=== PATIENT | female | born 1980 | race Caucasian/White ===

== ENCOUNTER 2017-09-17 15:21 | Emergency (ER) | payer MEDICAID, SELFPAY ==
[2017-09-17 15:43] VITALS: BP 128/77; PULSE 110; RESP 18; TEMP 37.3; O2SAT 98; BMI 27.9
--- NOTE | 2017-09-17 16:23 | HMH.EDUTC ---
[facility] – [place] Disposition Clinical Impression: Viral upper respiratory illness Disposition: Home, Self-Care Condition on Discharge: Good Instructions: DI for Viral Upper Respiratory Infection -- Adult Additional Instructions: * Monitor Temp. Tylenol and/or Ibuprofen as needed. ER if fever is no less than 101 despite alternating Tylenol and Ibuprofen * Encourage fluids, water, Gatorade, powerade, pedialyte if infant/toddler/or child * Warm salt water gargles for throat irritation *Warm fluids *Sore throat lozenges *Sleep elevated *humidifier or vaporizer Lots of rest Increase fluids, water, Gatorade, powerade *Flonase 2 sprays each nostril daily but may take 2-3 days to notice improvement with it *Bromfed may cause drowsiness. Know how it effect you or your child. Before driving, caring for small children or sending your child to school *Your throat swab was sent to lab for culture. Those results area typically sent to your primary care physician. Be sure to follow up in 2-3 days if no improvement so they can review those results and treat if necessary If you dont have primary care I recommend you get one, but in the mean time you will have to return to a walk in clinic Follow up IMMEDIATELY for new or worsening of symptoms OR no noticeable improvement over the next 48-72 hours. 911 immediately for any life threatening symptoms such as chest pain or difficulty breathing Prescriptions: Brompheniramine/Pseudoephed/Dm [Bromfed DM Cough Syrup 5mL] 10 ml PO Q4HP PRN #300 ml PRN Reason: Cough Fluticasone Propionate [Flonase 50mcg nasal spray 16gm] 2 spr NS DAILY #1 bottle Referrals: Christiano Acosta MD [Primary Care Provider] - Time of Disposition: 16:37 Medical Decision Making - Medical Records Medical records reviewed: Yes: I reviewed the patient's medical records. Vital Signs: 09/17/17 15:43 Temperature 99.2 F Temperature Source Temporal Artery Scan Pulse Rate [Right] 110 H Respiratory Rate 18 Blood Pressure [Right Arm] 128/77 Blood Pressure Mean [Right Arm] 94 Blood Pressure Source [Right Arm] Automatic Cuff Blood Pressure Position [Right Arm] Sitting 02 Sat by Pulse Oximetry 98 Oxygen Delivery Method Room Air - Romie Inquiry Pt receiving controlled substance: No Romie was queried for this patient: No [facility] [place] HPI - General Stated complaint: body aches ear pain sore throat head ache cough Mode of Arrival: Ambulatory Source of Information: Patient Limitations: No Limitations Description of Symptoms (Recalled from Triage Doc. by RN): COUGH, CONGESTION, BODY ACHES BEGAN LAST NIGHT HEENT Symptoms (Recalled from RN notes): Yes Resp Symptoms (Recalled from RN notes): No Skin Symptoms (Recalled from RN notes): No MS Symptoms (Recalled from RN notes): No Functional Status (Recalled from RN notes): N - History of Present Illness Provider Complaint: Patient states that she has not been feeling well since last night State that she has continued to get worse States that she is having body aches, chills, fever, sore throat, ear ache and over all not feeling well State that she was worried that she may have the flu - Related Data Previous Rx's Medication Instructions Recorded Brompheniramine/Pseudoephed/Dm 10 ml PO Q4HP PRN #300 ml 09/17/17 [Bromfed DM Cough Syrup 5mL] Fluticasone Propionate [Flonase 2 spr NS DAILY #1 bottle 09/17/17 50mcg nasal spray 16gm] Allergies Allergy/AdvReac Type Severity Reaction Status Date / Time No Known Allergies Allergy Verified 09/17/17 15:48 - Worker's Comp Is this a Worker's Comp case?: No [facility] History I have reviewed the patient's past medical history: Yes - *Social History Smoking Status: Current every day smoker Tobacco Type: cigarettes Alcohol Intake: never - Psychiatric History Expresses thoughts of harming self/others: None Suicide Plan Description: No Plan ROS Obtained: Yes All systems reviewed & no additional complaints - Constitutional Constitu
--- NOTE | 2017-09-17 16:34 | ED_ITS ---
[facility] [place] Disposition Clinical Impression: Viral upper respiratory illness Disposition: Home, Self-Care Condition on Discharge: Good Instructions: DI for Viral Upper Respiratory Infection -- Adult Additional Instructions: * Monitor Temp. Tylenol and/or Ibuprofen as needed. ER if fever is no less than 101 despite alternating Tylenol and Ibuprofen * Encourage fluids, water, Gatorade, powerade, pedialyte if infant/toddler/or child * Warm salt water gargles for throat irritation *Warm fluids *Sore throat lozenges *Sleep elevated *humidifier or vaporizer Lots of rest Increase fluids, water, Gatorade, powerade *Flonase 2 sprays each nostril daily but may take 2-3 days to notice improvement with it *Bromfed may cause drowsiness. Know how it effect you or your child. Before driving, caring for small children or sending your child to school *Your throat swab was sent to lab for culture. Those results area typically sent to your primary care physician. Be sure to follow up in 2-3 days if no improvement so they can review those results and treat if necessary If you don? t have primary care I recommend you get one, but in the mean time you will have to return to a walk in clinic Follow up IMMEDIATELY for new or worsening of symptoms OR no noticeable improvement over the next 48-72 hours. 911 immediately for any life threatening symptoms such as chest pain or difficulty breathing Prescriptions: Brompheniramine/Pseudoephed/Dm [Bromfed DM Cough Syrup 5mL] 10 ml PO Q4HP PRN # 300 ml PRN Reason: Cough Fluticasone Propionate [Flonase 50mcg nasal spray 16gm] 2 spr NS DAILY #1 bottle Referrals: Christiano Acosta MD [Primary Care Provider] - Time of Disposition: 16:37 Medical Decision Making - Medical Records Medical records reviewed: Yes: I reviewed the patient's medical records. Vital Signs: 09/17/17 15:43 Temperature 99.2 F Temperature Source Temporal Artery Scan Pulse Rate [Right] 110 H Respiratory Rate 18 Blood Pressure [Right Arm] 128/77 Blood Pressure Mean [Right Arm] 94 Blood Pressure Source [Right Arm] Automatic Cuff Blood Pressure Position [Right Arm] Sitting 02 Sat by Pulse Oximetry 98 Oxygen Delivery Method Room Air - Romie Inquiry Pt receiving controlled substance: No Romie was queried for this patient: No [facility] [place] HPI - General Stated complaint: body aches ear pain sore throat head ache cough Mode of Arrival: Ambulatory Source of Information: Patient Limitations: No Limitations Description of Symptoms (Recalled from Triage Doc. by RN): COUGH, CONGESTION, BODY ACHES BEGAN LAST NIGHT HEENT Symptoms (Recalled from RN notes): Yes Resp Symptoms (Recalled from RN notes): No Skin Symptoms (Recalled from RN notes): No MS Symptoms (Recalled from RN notes): No Functional Status (Recalled from RN notes): N - History of Present Illness Provider Complaint: Patient states that she has not been feeling well since last night State that she has continued to get worse States that she is having body aches, chills, fever, sore throat, ear ache and over all not feeling well State that she was worried that she may have the flu - Related Data Previous Rx's Medication Instructions Recorded Brompheniramine/Pseudoephed/Dm 10 ml PO Q4HP PRN #300 ml 09/17/17 [Bromfed DM Cough Syrup 5mL] Fluticasone Propionate [Flonase 2 spr NS DAILY #1 bottle 09/17/17 50mcg nasal spray 16gm] Allergies Darshan
[2017-09-17 16:36] LABS: UTC Influenza A Antigen Negative (Negative); UTC Influenza B Antigen Negative (Negative)
[2017-09-17 16:47] VITALS: BP 128/77; PULSE 100; RESP 18; TEMP 37.2
== END 2017-09-17 16:48 | disposition home or self-care (01) ==
PROVIDERS: Emergency Provider Nurse Practitioner; Family Provider Internal Medicine Adolescent Medicine; PCP Internal Medicine Adolescent Medicine
DX: J06.9 Acute upper respiratory infection, unspecified (principal)
CPT/HCPCS: 87804; 99202

== ENCOUNTER → 2018-05-18 15:11 | Outpatient (CLI) | payer MEDICAID, SELFPAY ==
[2018-05-18 15:56] LABS: Basophils # 0.1 K/mm3 (0-0.2); Basophils % 0.8 % (0.1-2.0); Eosinophils # 0.3 K/mm3 (0.0-0.4); Eosinophils % 2.9 % (0.1-12.0); Hematocrit 40.3 % (37.0-47.0); Hemoglobin 13.6 g/dL (12.2-16.2); Lymphocytes # 3.6 K/mm3 (0.7-4.5); Mean Corpuscular HGB Conc 33.7 g/dL (31.8-35.4); Mean Corpuscular Hemoglobin 31.6 pg (27.0-31.2); Mean Corpuscular Volume 93.6 fl (81-99); Mean Platelet Volume 7.4 fl (7.4-10.4); Monocytes # 0.4 K/mm3 (0.1-1.0); Monocytes % 3.8 % (1.7-9.3); Neutrophils # 5.2 K/mm3 (1.8-7.8); Neutrophils % 54.7 % (37.0-80.0); Platelet Count 329 K/mm3 (142-424); Red Cell Distribution Width 12.8 % (11.5-17.5); White Blood Count 9.5 K/mm3 (4.8-10.8)
[2018-05-18 16:13] LABS: Alanine Aminotransferase 32 U/L (12-78); Albumin Level 3.9 gm/dL (3.4-5.0); Albumin/Globulin Ratio 1.3 (1.1-1.8); Alkaline Phosphatase 98 U/L (46-116); Anion Gap 13.1 mEq/L (5-15); Aspartate Amino Transferase 18 U/L (15-37); Bilirubin,Total 0.3 mg/dL (0.2-1.0); Blood Urea Nitrogen 15 mg/dL (7-18); Calcium 9.1 mg/dL (8.5-10.1); Carbon Dioxide 26 mmol/L (21.0-32.0); Chloride 106 mmol/L (98-107); Creatinine,Serum 0.61 mg/dL (0.55-1.02); Estimated Glomerular Filt Rate 110 ml/min (>60); GFR (African American) 134 ML/MIN (>60); Globulin 2.9 gm/dl (1.3-3.2); Glucose 89 mg/dL (74-106); Potassium 4.1 mmoL/L (3.5-5.1); Sodium 141 mmol/L (136-145); Thyroid Stimulating Hormone 0.91 uIU/ml (0.358-3.740); Total Protein,Serum 6.8 gm/dL (6.4-8.2)
[2018-05-20 10:04] LABS: Vitamin B12 581 pg/mL (232-1245); Vitamin D 25 Hydroxy 21.2 ng/mL (30.0-100.0)
== END ==
PROVIDERS: PCP Nurse Practitioner Family; Visit Provider Nurse Practitioner Family
DX: R53.83 Other fatigue (principal)
CPT/HCPCS: 36415; 80053; 82607; 82652; 84443; 85025

== ENCOUNTER → 2018-05-24 10:36 | Outpatient (CLI) | payer MEDICAID, SELFPAY ==
--- NOTE | 2018-05-24 10:40 | US_ITS ---
US breast LT complete INDICATION: Palpable abnormality in the left axillary region ORDERING PHYSICIAN: Tete Stewart PATIENT AGE: 37 years COMPARISON: None TECHNIQUE: Standard ultrasound performed FINDINGS: In the subcutaneous area of the left axilla there is a triangular-shaped 9 x 3 mm area of decreased echogenicity with a somewhat irregular appearance. This could represent an area of inflammation/infection or developing abscess. Fine-needle aspiration could be performed with sonographic guidance if clinically warranted. A mammogram was not performed as this was in the axilla and not in an area that would be covered by the mammogram. IMPRESSION: Ill-defined hypoechoic subcutaneous area in the left axilla which could be due to an area of inflammation/infection or developing abscess. Recommend follow-up to confirm resolution
== END ==
PROVIDERS: Family Provider Internal Medicine Adolescent Medicine; PCP Nurse Practitioner Family; Visit Provider Nurse Practitioner Family
DX: N63.20 Unspecified lump in the left breast, unspecified quadrant (principal)
CPT/HCPCS: 76641

== ENCOUNTER → 2019-05-08 15:21 | Outpatient (CLI) | payer MEDICAID, SELFPAY ==
--- NOTE | 2019-05-08 15:22 | MM_ITS ---
PROCEDURE: MM DIG SCREENING MAMM BI W/CAD CLINICAL INDICATION: screening There is no personal or family history of breast cancer COMPARISON: None, this is baseline TECHNIQUE: Standard CC and MLO images were obtained. R2 CAD reviewed. FINDINGS: Scattered fibroglandular densities are seen throughout both breasts. There are couple of benign-appearing microcalcifications in each breast. There is no suspicious lesion and no suspicious microcalcifications. IMPRESSION: Fibrofatty parenchyma with no suspicious lesions seen BI-RAD Category: 2 Benign Finding(s) FOLLOW-UP: 1YR 1 Year Follow-up (A letter has been sent to the patient regarding results of the study.) Dictated by: Dr. Sebastian Mathur MD 05/13/2019 08:[address] Sebastian Mathur MD in [place] 05/13/2019 08:23
--- NOTE | 2019-05-08 15:22 | US_ITS ---
PROCEDURE: US TRANSVAGINAL CLINICAL INDICATION: pelvic pain COMPARISON: PTV US PELVIS-TRANSVAGINAL ONLY from 09/18/2016 FINDINGS: The uterus is empty and there is no cul-de-sac fluid. UTERUS: Measures 6.2 x 3.1 x 3.7 centimeters. LEFT OVARY: Measures 2.1 x 1.0 x 1.5 centimeters. RIGHT OVARY: Measures 1.5 x 1.0 x 1.0 centimeters. Evidence of blood flow to both ovaries. IMPRESSION: Normal study. Dictated by: Rj Canseco 05/08/2019 16:00 Electronically signed by Rj Canseco in [place] 05/08/2019 16:00
== END ==
PROVIDERS: PCP Internal Medicine Adolescent Medicine; Visit Provider Obstetrics & Gynecology
DX: Z12.31 Encounter for screening mammogram for malignant neoplasm of breast (principal); R10.2 Pelvic and perineal pain
CPT/HCPCS: 76830; 77067

== ENCOUNTER 2019-12-14 18:22 | Emergency (ER) | payer OTHER, SELFPAY ==
[2019-12-14 18:28] VITALS: BP 141/80; PULSE 80; RESP 16; TEMP 36.7; O2SAT 98; BMI 28.3
--- NOTE | 2019-12-14 18:34 | HMH.EDUTC ---
[facility] [place] Disposition Clinical Impression: Pain Disposition: Still a Patient Condition on Discharge: Good Referrals: Christiano Acosta MD [Primary Care Provider] - Medical Decision Making - Romie Inquiry Pt receiving controlled substance: No Romie was queried for this patient: No Vital Signs: 12/14/19 18:28 Temperature 98.0 F Temperature Source Oral Pulse Rate [Right Brachial] 80 Respiratory Rate 16 Blood Pressure [Right Arm] 141/80 H Blood Pressure Mean [Right Arm] 100 Blood Pressure Source [Right Arm] Automatic Cuff Blood Pressure Position [Right Arm] Sitting 02 Sat by Pulse Oximetry 98 Oxygen Delivery Method Room Air Medical Decision Narrative: Patient reports having headache for the last couple of days, having blurred vision on and off, Feeling off in her head, feeling like something is sitting on her chest, feeling anxious, having pain in her right upper arm from her elbow to armpit area and into right side of chest/breast area Patient being transferred to ED due to complaints Patient report given and patient placed in room 7 [facility] [place] HPI - General Stated complaint: Pain R Arm ,SOB,WARD Time Seen by Provider: 12/14/19 18:34 Mode of Arrival: Ambulatory Source of Information: Patient Limitations: No Limitations Description of Symptoms (Recalled from Triage Doc. by RN): PT c/o right arm pain that came on suddenly. Denies any heavy lifting/pushing/pulling HEENT Symptoms (Recalled from RN notes): No Resp Symptoms (Recalled from RN notes): No Skin Symptoms (Recalled from RN notes): No MS Symptoms (Recalled from RN notes): Yes (pain in the right arm) Functional Status (Recalled from RN notes): na - History of Present Illness Provider Complaint: Patient state that she has had a headache for a couple of days and has been having blurred vision on and off. States that she has also felt like she had something sitting on her chest at times and felt like her heart was fluttering. States that earlier she started having throbbing like pain in her right arm from her elbow up to her arm pit and into the right side of her chest area around her breast. States that then she started having some blurred vision and her wanted her to come and get checked out States that at this time she feels off and doesnt feel right in her head and she is scared - Related Data Allergies Allergy/AdvReac Type Severity Reaction Status Date / Time No Known Allergies Allergy Verified 12/14/19 18:31 - Worker's Comp Is this a Worker's Comp case?: No Is this an [facility] Worker's Comp?: No H History - Hepatitis A Screen Drug use history?: No High risk sexual behaviors?: No History of sexually transmitted infection?: No Currently employed?: No Childcare worker?: No Do you have indoor plumbing?: Yes Do you have electricity?: Yes Attestation statement:: This patient has been screened for Hepatitis A risk factors. I have reviewed the patient's past medical history: Yes Medical History: Denies:: Cancer, Diabetes Mellitus Type 1, Diabetes Mellitus Type 2, Hypertension, Internal Pacemaker, MRSA, Seizures Other Medical History: Denies: Blood Transfusion Reaction Other Surgeries: Yes: Hysterectomy-Partial, Tubal Ligation, Other. No: Pacemaker Amputation: No Fractures: No Comment: dental surgery. 1999-D&E. 2006-PPBTL. 2008-D&C, [facility] Bx. 2016-PVS, Rt. SO, Adhesiolysis - Social History Smoking Status: Current every day smoker Tobacco Type: cigarettes # Packs/Day (cigarettes): 1 Alcohol Intake: never Occupational Status: employed Housing: house Household Members: spouse Family Hx:: Diabetes, Heart Attack, Cancer Comment: 2000-Preg #1-Spon Ab, D&E. 2000-Preg#2-,M,6-8,del @35 weeks, no comp, bottle fed. 2001-Preg#3-Spo Ab, D&E. 2003-preg#4-,M,6-7, del @34 weeks, no comp, bottle fed. 2007-preg#5-, F, 6-8, no comp, bottle fed ROS Obtained: Yes All systems reviewed & no additional complaints, Yes Systems reviewed as appropri
--- NOTE | 2019-12-14 18:39 | CT_ITS ---
PROCEDURE: CT HEAD/BRAIN WO CON CLINICAL INDICATION: blurred vision Visual disturbance COMPARISON: No exams were available for comparison TECHNIQUE: Axial images obtained. All CT scans at the facility use one or more dose reduction, viz: automated exposure control, ma/kV adjustment per patient size (including targeted exams where dose is matched to indication, i.e. head), or iterative reconstruction technique. FINDINGS: No midline shift, mass effect, intracranial hemorrhage, hydrocephalus, or extra-axial fluid collection is evident. The calvarium has an unremarkable appearance. No mastoid effusion. No sinus air-fluid level. IMPRESSION: No acute intracranial finding Dictated by: Giovani White MD 12/14/2019 20:52 Electronically signed by Giovani White MD in [place] 12/14/2019 20:52
--- NOTE | 2019-12-14 18:40 | XR_ITS ---
PROCEDURE: XR CHEST 2V CLINICAL HISTORY: cp Chest pain COMPARISON: CXR1 CHEST-PORTABLE from 09/30/2016 CXR2V XR chest 2V from 10/26/2018 Chest from 02/26/2019 FINDINGS: The cardiomediastinal silhouette and pulmonary vascularity are within normal limits. The lungs are clear without infiltrates, suspicious nodules, or pleural effusions. No acute bony abnormalities. IMPRESSION: No acute findings. Dictated by: Giovani White MD 12/14/2019 20:53 Electronically signed by Giovani White MD in [place] 12/14/2019 20:53
[2019-12-14 18:41] VITALS: BP 129/71; PULSE 87; RESP 20; TEMP 36.8; O2SAT 98; BMI 28.3
--- NOTE | 2019-12-14 18:46 | ECG_ITS ---
APPROVED REPORT Exam: Resting ECG HR:77 bpm ECG Measurements Heart Rate 77 AXES KS 136 P 60 QRSd 72 QRS 45 QT 402 T 13 QTc 454 <Conclusion> Normal sinus rhythm with sinus arrhythmia Normal ECG Electronically signed by : Christiano Acosta, 12/16/2019 10:58:53
--- NOTE | 2019-12-14 18:51 | HMH.EDGENADL ---
ED Disposition Clinical Impression: Pain in right axilla Disposition: Home, Self-Care Condition on Discharge: Fair Additional Instructions: Ibuprofen 800 mg every 8 hours, may take [id number] until you can get your prescription filled. Warm compresses 4-5 times a day. Tylenol [address] Caldwell's office tomorrow morning for progress report and they will then instruct you on when to follow-up in the office for appointment. Return to the emergency room if fever greater than 100 degrees, intolerable pain, severe swelling. Additional instructions for CONTROLLED SUBSTANCES: You have been prescribed a medication that is a controlled substance. Controlled substances include pain medications known as opiates and sedative nerve medications known as benzodiazepines. Tramadol, fioricet, and gabapentin are also controlled substances. Some common opiates include: Codeine (such as Tylenol #3) Hydrocodone (Vicodin, Lortab, Lorcet, Gail) Oxycodone (Percocet, Percodan, Oxycodone, Oxy IR) Some common benzodiazepines include: Diazepam (Valium) Lorazepam (Ativan) Alprazolam (Xanax) Clonazepam (Klonopin) Oxazepam (Serax) All of these controlled substances are highly addictive and frequently abused. Misuse can and frequently does lead to addiction as well as overdose and . Medication should be stored in a locked cabinet or other secure storage unit. Do not store the medication in a motor vehicle. Short term supplies, 3 days or less, are prescribed because of the highly addictive nature of the medication. Any of the controlled substance medication NOT taken should be disposed of properly and NOT SAVED. The recommended method of disposing of unused medications is: Place the medicines in a sealable plastic bag. If the medicine is a solid, crush it or add water to dissolve it. Add something undesirable (cat litter, coffee grounds, etc.) Dispose of sealed bag in household trash Do not flush or pour unused medicines down a sink or drain. Controlled substances should not be shared, given away or sold. Because of the addictive nature and frequent abuse, these medications are sometimes stolen. These medications should be kept in a safe place where they cannot be stolen. Do not keep them in your car or purse. Lost or stolen prescriptions for controlled substances WILL NOT BE REFILLED in this emergency department, regardless of whether a police report was filed. Prescriptions: Ibuprofen [Ibuprofen 800mg Tab] 800 mg PO Q8HP PRN #15 tab PRN Reason: Moderate Pain Transmission Status: Received by [facility] Referrals: Christiano Acosta MD [Primary Care Provider] - - Critical Care Critical Care Time: No Attestation: On 12/14/19, the high probability of a clinically significant, sudden or life threatening deterioration of the following system(s) required my full and direct attention, intervention and personal management. The time I documented below is in addition to time spent performing reported procedures but includes the following listed in this critical care notation. Medical Decision Making - Romie Inquiry Pt receiving controlled substance: Yes Romie was queried for this patient: Yes Reference #:: [id number] Risks and benefits of using a controlled substance: were discussed with pt by me Comment: 1 rx tylenol #11 Jun 2019 Vital Signs: 12/14/19 18:28 12/14/19 18:41 Temperature 98.0 F 98.2 F Temperature Source Oral Oral Pulse Rate [Right Brachial] 80 87 Respiratory Rate 16 20 Blood Pressure [Right Arm] 141/80 H 129/71 Blood Pressure Mean [Right Arm] 100 90 Blood Pressure Source [Right Arm] Automatic Cuff Blood Pressure Position [Right Arm] Sitting 02 Sat by Pulse Oximetry 98 98 Oxygen Delivery Method Room Air - Lab Data Lab Results 12/14/19 18:45: WBC 10.2, RBC 4.62, Hgb 14.4, Hct 44.6, MCV 96.7, MCH 31.2, MCHC 32.3, RDW 13.0, Plt Count 333, MPV 7.9, Neut % (Auto) 53.6, Lymph
[2019-12-14 18:56] LABS: Basophils # 0.1 K/mm3 (0-0.2); Basophils % 0.8 % (0.1-2.0); Eosinophils # 0.2 K/mm3 (0.0-0.4); Eosinophils % 2.3 % (0.1-12.0); Hematocrit 44.6 % (37.0-47.0); Hemoglobin 14.4 g/dL (12.2-16.2); Lymphocytes % 38.6 % (10-50); Mean Corpuscular HGB Conc 32.3 g/dL (31.8-35.4); Mean Corpuscular Hemoglobin 31.2 pg (27.0-31.2); Mean Corpuscular Volume 96.7 fl (81-99); Mean Platelet Volume 7.9 fl (7.4-10.4); Monocytes # 0.5 K/mm3 (0.1-1.0); Monocytes % 4.6 % (1.7-9.3); Neutrophils # 5.5 K/mm3 (1.8-7.8); Neutrophils % 53.6 % (37.0-80.0); Platelet Count 333 K/mm3 (142-424); Red Blood Count 4.62 M/mm3 (4.20-5.40); White Blood Count 10.2 K/mm3 (4.8-10.8)
[2019-12-14 19:00] LABS: Chloride 107 mmol/L (98-107); Potassium 4.2 mmoL/L (3.5-5.1); Sodium 141 mmol/L (136-145)
[2019-12-14 19:02] LABS: Alanine Aminotransferase 23 U/L (12-78); Aspartate Amino Transferase 29 U/L (14-36); Blood Urea Nitrogen 13 mg/dl (7-17); Creatinine Clearance Estimated 153 mL/min (50-200); Estimated Glomerular Filt Rate 111 ml/min (>60); GFR (African American) 135 ML/MIN (>60)
[2019-12-14 19:03] LABS: Activated Partial Thrombo Time 28.2 seconds (23.6-34.0); Albumin Level 4.8 g/dl (3.5-5.0); Albumin/Globulin Ratio 1.7 (1.1-1.8); Alkaline Phosphatase 83 U/L (38-126); Anion Gap 12.2 mEq/L (5-15); Bilirubin,Total 0.4 mg/dl (0.2-1.3); Calcium 9.7 mg/dl (8.4-10.2); Carbon Dioxide 26 mmol/L (22.0-30.0); Globulin 2.8 g/dL (1.3-3.2); Glucose 88 mg/dl (74-100); INR 0.94 (0.9-1.1); Prothrombin Time 9.8 seconds (9.4-11.8); Total Protein,Serum 7.6 g/dl (6.3-8.2)
[2019-12-14 19:04] LABS: Ethyl Alcohol < 10 mg/dl (0-10)
[2019-12-14 19:18] LABS: Troponin I < 0.01 ng/ml (0.00-0.034)
[2019-12-14 19:34] LABS: Microscopic, Urine URINE MICROSCOPIC (MICROSCOPIC)
[2019-12-14 19:39] LABS: Appearance,Urine CLEAR (Clear); Bilirubin,Urine Negative (Negative); Blood, Urine Negative (Negative); Color,Urine YELLOW (Yellow); Glucose,Urine (UA) Negative (Negative); Ketones,Urine Negative (Negative); Leukocyte Esterase,Urine Negative (Negative); Nitrate,Urine Negative (Negative); PH,Urine 5.5 (5.0-8.5); Protein,Urine Negative (Negative); Specific Gravity, Urine >= 1.030 (1.005-1.030); Urobilinogen,Urine 0.2 EU/dl (0.2)
[2019-12-14 19:41] LABS: C-Reactive Protein 8.1 mg/L (0-4)
[2019-12-14 19:47] LABS: Amphetamine/Metha Screen,Urine Negative ng/ml (<1000)
[2019-12-14 19:48] LABS: Barbiturates Screen,Urine Negative ng/ml (<200); Benzodiazepines Screen,Urine Negative ng/ml (<200)
[2019-12-14 19:50] LABS: Cannabinoid Screen,Urine Negative ng/ml (<50); Cocaine Screen,Urine Negative ng/ml (<300)
[2019-12-14 19:51] LABS: Methadone Screen,Urine Negative ng/ml (<300); Opiate Screen,Urine Negative ng/ml (<300)
[2019-12-14 19:52] LABS: Bacteria,Urine Trace /lpf; Phencyclidine Screen,Urine Negative ng/ml (<25)
[2019-12-14 19:53] VITALS: BP 135/90; PULSE 83; RESP 16; O2SAT 97
[2019-12-14 20:14] LABS: D-Dimer < 100 ng/mL (0-400)
[2019-12-14 20:15] LABS: Erythrocyte Sedimentation Rate 29 mm/hr (0-20)
--- NOTE | 2019-12-14 20:36 | PC.NURSE ---
speaking with Dr. Caldwell
[2019-12-14 21:40] VITALS: BP 131/79; PULSE 78; RESP 16; TEMP 36.7; O2SAT 97
== END 2019-12-14 21:42 | disposition home or self-care (01) ==
LOC: UTC 18:27 → ER 18:38
PROVIDERS: Emergency Provider Emergency Medicine; PCP Internal Medicine Adolescent Medicine
DX: R51 Headache (principal); R07.9 Chest pain, unspecified; M25.521 Pain in right elbow; F17.210 Nicotine dependence, cigarettes, uncomplicated; Z90.79 Acquired absence of other genital organ(s)
CPT/HCPCS: 70450; 71046; 80053; 80305; 81001; 84484; 85025; 85378; 85610; 85651; 85730; 86140; 93005; 96365; 96375; 99283; J2405

== ENCOUNTER 2020-05-12 17:09 | Emergency (ER) | payer OTHER, SELFPAY ==
[2020-05-12 17:10] VITALS: BP 121/73; PULSE 68; RESP 18; TEMP 36.7; O2SAT 100; BMI 28.3
--- NOTE | 2020-05-12 17:21 | CT_ITS ---
PROCEDURE: CT SOFT TISSUE NECK WO CON CLINICAL HISTORY: PAIN COMPARISON: No exams were available for comparison TECHNIQUE: Oral Contrast: None IV Contrast: None Axial images obtained with sagittal and coronal reformats. All CT scans at the facility use one or more dose reduction, viz: automated exposure control, ma/kV adjustment per patient size (including targeted exams where dose is matched to indication, i.e. head), or iterative reconstruction technique. FINDINGS: C1 through C7 of the cervical spine appear intact. There is no significant degenerate change. Disc spaces are well maintained. The prevertebral soft tissues are normal. The or pharyngeal airway appears normal. The piriform sinuses and valleculae appear normal. The epiglottis is normal. The parotid glands and submandibular glands appear normal and symmetrical bilaterally. The vocal cords are normal. The upper trachea appears normal. There are few normal size nodes in the jugular digastric chain bilaterally. The superior mediastinum is unremarkable, the lung apices are clear bilaterally. IMPRESSION: Unremarkable noncontrast CT scan soft tissue neck Dictated by: Dr. Sebastian Mathur MD 05/12/2020 17:59 Dr. Sebastian Mathur MD in [place] 05/12/2020 17:59
--- NOTE | 2020-05-12 17:28 | CT_ITS ---
PROCEDURE: CT HEAD/BRAIN WO CON CLINICAL INDICATION: PAIN COMPARISON: CT CT HEAD/BRAIN WO CON from 12/14/2019 TECHNIQUE: Axial images obtained. All CT scans at the facility use one or more dose reduction, viz: automated exposure control, ma/kV adjustment per patient size (including targeted exams where dose is matched to indication, i.e. head), or iterative reconstruction technique. FINDINGS: No midline shift, mass effect, intracranial hemorrhage, hydrocephalus, or extra-axial fluid collection is evident. The calvarium has an unremarkable appearance. No mastoid effusion. No sinus air-fluid level. IMPRESSION: No acute intracranial finding Dictated by: Dr. Sebastian Mathur MD 05/12/2020 17:54 Dr. Sebastian Mathur MD in [place] 05/12/2020 17:54
[2020-05-12 17:38] LABS: Basophils # 0.1 K/mm3 (0-0.2); Basophils % 0.7 % (0.1-2.0); Eosinophils # 0.3 K/mm3 (0.0-0.4); Eosinophils % 2.4 % (0.1-12.0); Hematocrit 40.7 % (37.0-47.0); Hemoglobin 14.4 g/dL (12.2-16.2); Lymphocytes % 32.6 % (10-50); Mean Corpuscular HGB Conc 35.4 g/dL (31.8-35.4); Mean Corpuscular Volume 93.1 fl (81-99); Mean Platelet Volume 7.7 fl (7.4-10.4); Monocytes # 0.5 K/mm3 (0.1-1.0); Monocytes % 4.2 % (1.7-9.3); Neutrophils # 7.5 K/mm3 (1.8-7.8); Neutrophils % 60.2 % (37.0-80.0); Platelet Count 303 K/mm3 (142-424); Red Blood Count 4.37 M/mm3 (4.20-5.40); White Blood Count 12.4 K/mm3 (4.8-10.8)
--- NOTE | 2020-05-12 17:39 | HMH.EDGENADL ---
ED Disposition Clinical Impression: Cervical pain (neck) Disposition: Home, Self-Care Condition on Discharge: Good Instructions: DI for Acute Pain -- Adult Prescriptions: Cyclobenzaprine HCl [Cyclobenzaprine 5mg Tab] 5 mg PO Q8HP PRN #30 tab PRN Reason: pain/spasm Transmission Status: Pending to [facility] Ketorolac Tromethamine [Toradol 10mg tablet] 10 mg PO Q6H 5 Days #20 tab Transmission Status: Pending to [facility] Referrals: Dudley Caldwell MD [Primary Care Provider] - - Critical Care Critical Care Time: No Attestation: On 05/12/20, the high probability of a clinically significant, sudden or life threatening deterioration of the following system(s) required my full and direct attention, intervention and personal management. The time I documented below is in addition to time spent performing reported procedures but includes the following listed in this critical care notation. Medical Decision Making - Medical Records Medical records reviewed: Yes: I reviewed the patient's medical records. - Romie Inquiry Pt receiving controlled substance: No Vital Signs: 05/12/20 17:10 Temperature 98.1 F Temperature Source Oral Pulse Rate [Right] 68 Respiratory Rate 18 Blood Pressure [Right Arm] 121/73 Blood Pressure Mean [Right Arm] 89 02 Sat by Pulse Oximetry 100 - Lab Data Lab Results 05/12/20 17:25: WBC 12.4 H, RBC 4.37, Hgb 14.4, Hct 40.7, MCV 93.1, MCH 33.0 H, MCHC 35.4, RDW 13.0, Plt Count 303, MPV 7.7, Neut % (Auto) 60.2, Lymph % (Auto) 32.6, [place] % (Auto) 4.2, Eos % (Auto) 2.4, Baso % (Auto) 0.7, Neut # (Auto) 7.5, Lymph # (Auto) 4.0, [place] # (Auto) 0.5, Eos # (Auto) 0.3, Baso # (Auto) 0.1 05/12/20 17:25: Sodium 142, Potassium 3.8, Chloride 109 H, Carbon Dioxide 26, Anion Gap 10.8, BUN 14, Creatinine 0.70, Estimated Creat Clear 131, Estimated GFR 93, Est GFR ( Amer) 113, Glucose 112 H, Calcium 9.4, Total Bilirubin 0.3, AST 24, ALT 22, Alkaline Phosphatase 78, Total Protein 6.9, Albumin 4.2, Globulin 2.7, Albumin/Globulin Ratio 1.6 Result diagrams: 05/12/20 17:25 05/12/20 17:25 Orders (Tests/Meds): ED MEDICATIONS Discontinued Medications Generic Name Dose Route Start Last Admin Trade Name Asaq PRN Reason Stop Dose Admin Ketorolac Tromethamine 60 mg 05/12/20 17:49 05/12/20 17:55 Ketorolac 60mg/2ml Vial IM 05/12/20 17:50 Not Given ONCE ONE Ketorolac Tromethamine 30 mg 05/12/20 17:55 05/12/20 18:00 Ketorolac 30mg/Ml Vial IV 05/12/20 17:56 30 mg ONCE ONE Administration - CT Data CT Scan: Head, Other (Neck/Soft Tissue) Time Received: 18:[address] Reviewed: Yes: I have reviewed the patient's CT results, I have viewed the radiologist's interpretation Preliminary Findings: Normal/NAD General Adult HPI - General Chief complaint: PAIN Stated complaint: pain down L side of body Time Seen by Provider: 05/12/20 17:25 Mode of Arrival: Ambulatory Source of Information: Patient Limitations: No Limitations Description of Symptoms (Recalled from ER Triage Doc. by RN): C/O PAIN IN THE LEFT SIDE OF HER NECK THAT STARTED LAST NIGHT AND NOW IS RADIATING TO THE LEFT SIDE OF HER BODY. - History of Present Illness HPI narrative: This is a 39-year-old female that presents with complaints of left submandibular pain that radiates into the neck and goes up into the head. Pain began yesterday and was nonradiating at that time. Pain is sharp constant and now radiates down into the left upper extremity and down the left torso. She denies chest pain or shortness of breath. Pain is moderate intensity without palliating or provoking measures. No purulence at the site of pain no fever warmth. Patient does endorse pain with palpation. No increased salivation or drooling. No toothache. - Related Data Previous Rx's Medication Instructions Recorded Ibuprofen [Ibuprofen 800mg Tab] 800 mg PO Q8HP PRN #15 tab 12/14/19 Cyclobenzaprine HCl 5 mg PO Q8H
[2020-05-12 17:41] LABS: Chloride 109 mmol/L (98-107); Potassium 3.8 mmoL/L (3.5-5.1); Sodium 142 mmol/L (136-145)
[2020-05-12 17:44] LABS: Alanine Aminotransferase 22 U/L (12-78); Albumin Level 4.2 g/dl (3.5-5.0); Albumin/Globulin Ratio 1.6 (1.1-1.8); Alkaline Phosphatase 78 U/L (38-126); Anion Gap 10.8 mEq/L (5-15); Aspartate Amino Transferase 24 U/L (14-36); Bilirubin,Total 0.3 mg/dl (0.2-1.3); Blood Urea Nitrogen 14 mg/dl (7-17); Calcium 9.4 mg/dl (8.4-10.2); Carbon Dioxide 26 mmol/L (22.0-30.0); Creatinine Clearance Estimated 131 mL/min (50-200); Estimated Glomerular Filt Rate 93 ml/min (>60); GFR (African American) 113 ML/MIN (>60); Globulin 2.7 g/dL (1.3-3.2); Glucose 112 mg/dl (74-100); Total Protein,Serum 6.9 g/dl (6.3-8.2)
--- NOTE | 2020-05-12 18:19 | PC.NURSE ---
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
[2020-05-12 18:28] VITALS: BP 112/65; PULSE 74; RESP 18; TEMP 36.6; O2SAT 100
== END 2020-05-12 18:29 | disposition home or self-care (01) ==
PROVIDERS: Emergency Provider Emergency Medicine; PCP Internal Medicine Adolescent Medicine
DX: M54.2 Cervicalgia (principal); F17.210 Nicotine dependence, cigarettes, uncomplicated
CPT/HCPCS: 70450; 70490; 80053; 85025; 96374; 99282

== ENCOUNTER 2021-01-20 23:21 | Emergency (ER) | payer OTHER, SELFPAY ==
[2021-01-20 23:37] VITALS: BP 118/72; PULSE 79; RESP 16; TEMP 36.7; O2SAT 96; BMI 28.3
--- NOTE | 2021-01-20 23:51 | HMH.EDWNDL ---
ED Disposition Clinical Impression: Laceration of thumb Qualifiers: Encounter type: initial encounter Damage to nail status: without damage Foreign body presence: without foreign body Laterality: left Qualified Code(s): S61.012A - Laceration without foreign body of left thumb without damage to nail, initial encounter Disposition: Home, Self-Care Condition on Discharge: Good Instructions: DI for Laceration Repair Additional Instructions: sutures out 10 days and recheck if any problems Referrals: Dudley Caldwell MD [Primary Care Provider] - - Critical Care Critical Care Time: No Attestation: On 01/20/21, the high probability of a clinically significant, sudden or life threatening deterioration of the following system(s) required my full and direct attention, intervention and personal management. The time I documented below is in addition to time spent performing reported procedures but includes the following listed in this critical care notation. Medical Decision Making - Medical Records Medical records reviewed: Yes: I reviewed the patient's medical records. - Romie Inquiry Pt receiving controlled substance: No Vital Signs: 01/20/21 23:37 Temperature 98.1 F Temperature Source Oral Pulse Rate [Right] 79 Respiratory Rate 16 Blood Pressure [Right Arm] 118/72 Blood Pressure Mean [Right Arm] 87 Blood Pressure Source [Right Arm] Automatic Cuff Blood Pressure Position [Right Arm] Sitting 02 Sat by Pulse Oximetry 96 Oxygen Delivery Method Room Air Wound/Laceration HPI - General Chief Complaint: Wound/Laceration Stated Complaint: [id number] Left thumb laceration Time Seen by Provider: 01/20/21 23:50 Mode of Arrival: Ambulatory Source of Information: Patient, Spouse, Medical Record Limitations: No Limitations Description of Symptoms (Recalled from ER Triage Doc. by RN): Pt has lac to left thumb from steak knife, bleeding controlled - History of Present Illness HPI narrative: lac to lt thumb tonight using knife Onset (ago): hour(s) Extremity Location: Left: hand Place: home Patient tetanus UTD: Yes Context: sharp object use Associated symptoms: none - Related Data Previous Rx's Medication Instructions Recorded Ibuprofen [Ibuprofen 800mg Tab] 800 mg PO Q8HP PRN #15 tab 12/14/19 Cyclobenzaprine HCl 5 mg PO Q8HP PRN #30 tab 05/12/20 [Cyclobenzaprine 5mg Tab] Ketorolac Tromethamine [Toradol 10 mg PO Q6H 5 Days #20 tab 05/12/20 10mg tablet] Allergies Allergy/AdvReac Type Severity Reaction Status Date / Time No Known Allergies Allergy Verified 12/14/19 18:31 [facility] History - Hepatitis A Screen Drug use history?: No High risk sexual behaviors?: No History of sexually transmitted infection?: No Currently employed?: No Childcare worker?: No Do you have indoor plumbing?: Yes Do you have electricity?: Yes Attestation statement:: This patient has been screened for Hepatitis A risk factors. I have reviewed the patient's past medical history: Yes Medical History: Denies:: Cancer, Diabetes Mellitus Type 1, Diabetes Mellitus Type 2, Hypertension, Internal Pacemaker, MRSA, Seizures Other Medical History: Denies: Blood Transfusion Reaction Other Surgeries: Yes: Hysterectomy-Partial, Tubal Ligation, Other. No: Pacemaker Amputation: No Fractures: No Comment: dental surgery. 1999-D&E. 2006-PPBTL. 2008-D&C, Cone Bx. 2016-PVS, Rt. SO, Adhesiolysis - Social History Smoking Status: Current every day smoker Tobacco Type: cigarettes # Packs/Day (cigarettes): 1 Alcohol Intake: never Occupational Status: employed Housing: house Household Members: spouse Family Hx:: Diabetes, Heart Attack, Cancer Comment: 2000-Preg #1-Spon Ab, D&E. 2000-Preg#2-,M,6-8,del @35 weeks, no comp, bottle fed. 2001-Preg#3-Spo Ab, D&E. 2003-preg#4-,M,6-7, del @34 weeks, no comp, bottle fed. 2006-preg#5-, F, 6-8, no comp, bottle fed ROS Obtained: Yes All systems reviewed & no additional complaints
--- NOTE | 2021-01-20 23:54 | PC.NURSE ---
Pt UTD on TDAP
[2021-01-20 23:55] VITALS: BP 120/78; PULSE 74; RESP 16; TEMP 36.7; O2SAT 98
== END 2021-01-21 | disposition home or self-care (01) ==
PROVIDERS: Emergency Provider Emergency Medicine; PCP Internal Medicine Adolescent Medicine
DX: S61.012A Laceration without foreign body of left thumb without damage to nail, initial encounter (principal); W26.0XXA Contact with knife, initial encounter; Y92.019 Unspecified place in single-family (private) house as the place of occurrence of the external cause; F17.210 Nicotine dependence, cigarettes, uncomplicated
CPT/HCPCS: 12001; 99282

== ENCOUNTER → 2021-06-25 17:06 | Outpatient (CLI) | payer OTHER, SELFPAY ==
[2021-06-25 17:39] LABS: Basophils # 0.1 K/mm3 (0-0.2); Basophils % 1.2 % (0.1-2.0); Eosinophils # 0.3 K/mm3 (0.0-0.4); Eosinophils % 2.6 % (0.1-12.0); Hematocrit 42.6 % (37.0-47.0); Hemoglobin 14.3 g/dL (12.2-16.2); Lymphocytes # 4.5 K/mm3 (0.7-4.5); Lymphocytes % 38.7 % (10-50); Mean Corpuscular HGB Conc 33.6 g/dL (31.8-35.4); Mean Corpuscular Hemoglobin 31.6 pg (27.0-31.2); Mean Corpuscular Volume 94.1 fl (81-99); Mean Platelet Volume 8.3 fl (7.4-10.4); Monocytes # 0.5 K/mm3 (0.1-1.0); Monocytes % 4.4 % (1.7-9.3); Neutrophils # 6.1 K/mm3 (1.8-7.8); Neutrophils % 53.1 % (37.0-80.0); Platelet Count 345 K/mm3 (142-424); Red Blood Count 4.52 M/mm3 (4.20-5.40); Red Cell Distribution Width 13.2 % (11.5-17.5); White Blood Count 11.5 K/mm3 (4.8-10.8)
[2021-06-25 17:58] LABS: Alanine Aminotransferase 23 U/L (12-78); Albumin Level 4.4 g/dl (3.5-5.0); Albumin/Globulin Ratio 1.9 (1.1-1.8); Alkaline Phosphatase 69 U/L (38-126); Aspartate Amino Transferase 26 U/L (14-36); Bilirubin,Total 0.1 mg/dl (0.2-1.3); Blood Urea Nitrogen 16 mg/dl (7-17); Calcium 9.1 mg/dl (8.4-10.2); Carbon Dioxide 27 mmol/L (22.0-30.0); Chloride 107 mmol/L (98-107); Estimated Glomerular Filt Rate 111 ml/min (>60); GFR (African American) 134 ML/MIN (>60); Globulin 2.3 g/dL (1.3-3.2); Glucose 104 mg/dl (74-100); Sodium 141 mmol/L (136-145); Total Protein,Serum 6.7 g/dl (6.3-8.2)
[2021-06-25 18:15] LABS: Free Thyroxine Index 2.8 ug/dL (5.93-13.13); T4 (Thyroxine) 9.9 ug/dl (5.53-11.0); Triiodothryronine (T3) Uptake 28 % (23.5-40.5)
[2021-06-27 12:31] LABS: FSH 59.3 mIU/mL (.); LH 41.6 mIU/mL (.); Prolactin 6.9 ng/mL (4.8-23.3)
[2021-06-28 20:18] LABS: Estrogen 61 pg/mL (.)
== END ==
PROVIDERS: Visit Provider Nurse Practitioner Family
DX: N91.2 Amenorrhea, unspecified (principal); N64.4 Mastodynia; N64.52 Nipple discharge
CPT/HCPCS: 36415; 80053; 82672; 83001; 83002; 84146; 84436; 84443; 84479; 85025

== ENCOUNTER → 2021-07-21 13:59 | Outpatient (CLI) | payer OTHER, SELFPAY ==
--- NOTE | 2021-07-21 14:26 | MM_ITS ---
PROCEDURE INFORMATION: Exam: MG Bilateral Diagnostic Breast Tomosynthesis Exam date and time: 07/21/2021 2:26 PM Age: 40 years old Clinical indication: Bilateral; Nipple clear discharge x3 weeks, breast tenderness TECHNIQUE: Imaging protocol: Bilateral Diagnostic tomosynthesis and 2D mammography including computer-aided detection (CAD) when performed. Unilateral or bilateral exam. COMPARISON: 1. MG MM DIG SCREENING MAMM BI W/CAD 05/08/2019 3:49 PM 2. BREASTLT US breast LT complete 05/24/2018 10:52 AM FINDINGS: MAMMOGRAPHY: The breast tissue is composed of scattered areas of fibroglandular density. There is no stellate mass, architectural distortion or suspicious microcalcifications in either breast to suggest malignancy. No skin thickening or axillary adenopathy. IMPRESSION: Patient to be recalled for bilateral breast ultrasound for full evaluation of bilateral clear nipple discharge and pain. ASSESSMENT: BI-RADS Category 0: Incomplete- Need Additional Imaging Evaluation and/or Prior Mammograms for Comparison
== END ==
PROVIDERS: PCP Internal Medicine Adolescent Medicine; Visit Provider Nurse Practitioner Family
DX: N64.52 Nipple discharge (principal); N64.4 Mastodynia
CPT/HCPCS: 77062; 77066; G0279

== ENCOUNTER → 2021-07-30 08:12 | Outpatient (CLI) | payer OTHER, SELFPAY ==
--- NOTE | 2021-07-30 08:15 | US_ITS ---
PROCEDURE INFORMATION: Exam: US Right Breast, Complete Complete left breast ultrasound Exam date and time: 07/30/2021 8:15 AM Age: 40 years old Clinical indication: Bilateral breast pain and history of bilateral clear nipple discharge TECHNIQUE: Imaging protocol: Complete ultrasound of all four quadrants of the Right breast and the retroareolar regions, including ultrasound of the axilla when performed. COMPARISON: MG MM DIG MAMM BI DX W/CAD 07/21/2021 2:33 PM FINDINGS: Breast: Sonographic images of both breasts including the retroareolar regions, all 4 quadrants and the axilla do not demonstrate any solid or cystic masses. No architectural distortion or acoustical shadowing. No skin thickening or axillary adenopathy. IMPRESSION: 1. No sonographic evidence of malignancy. Annual mammographic screening is recommended unless otherwise clinically indicated. 2. If nipple discharge it is spontaneous and clear and/or hemorrhagic, further evaluation with MRI may be obtained ASSESSMENT: BI-RADS Category 1: Negative
--- NOTE | 2021-07-30 08:15 | US_ITS ---
See sonogram report 07/30/2021.Assessment: BI-RADS Category 1: Negative
== END ==
PROVIDERS: PCP Internal Medicine Adolescent Medicine; Visit Provider Nurse Practitioner Family
DX: N64.4 Mastodynia (principal)
CPT/HCPCS: 76641

== ENCOUNTER 2021-08-20 15:21 | Emergency (ER) | payer OTHER, SELFPAY ==
[2021-08-20 15:24] VITALS: BP 133/74; PULSE 75; RESP 16; TEMP 36.8; O2SAT 98; BMI 28.3
--- NOTE | 2021-08-20 15:59 | XR_ITS ---
FINAL REPORT CLINICAL HISTORY: fall FINDINGS: RIGHT FOOT Three views of the right foot demonstrate no acute fracture or dislocation. The visualized joint spaces are intact. The soft tissues are unremarkable. IMPRESSION: No acute bony abnormality. Reviewed, Interpreted and Dictated by Myke Szymanski III, MD Transcribed by Katherin Moon Authenticated by Myke Szymanski III, MD on 08/20/2021 05:01:52 PM [facility]
--- NOTE | 2021-08-20 15:59 | XR_ITS ---
FINAL REPORT CLINICAL HISTORY: fall injury FINDINGS: LEFT SHOULDER 3 views of the left shoulder were obtained. There is no acute fracture or dislocation. Visualized joint spaces are normally aligned. Soft tissues are unremarkable. IMPRESSION: No acute bony abnormality. Reviewed, Interpreted and Dictated by Myke Szymanski III, MD Transcribed by Katherin Moon Authenticated by Myke Szymanski III, MD on 08/20/2021 05:00:06 PM [facility]
--- NOTE | 2021-08-20 15:59 | XR_ITS ---
FINAL REPORT CLINICAL HISTORY: fall FINDINGS: RIGHT HIP Two views of the right hip including an AP pelvis demonstrate no acute fracture or dislocation. The joint spaces appear normal. The visualized bony structures are well aligned. No soft tissue abnormality is seen. IMPRESSION: No acute bony abnormality. Reviewed, Interpreted and Dictated by Myke Szymanski III, MD Transcribed by Katherin Moon Authenticated by Myke Szymanski III, MD on 08/20/2021 05:01:53 PM [facility]
--- NOTE | 2021-08-20 16:00 | XR_ITS ---
FINAL REPORT CLINICAL HISTORY: fall FINDINGS: LEFT HUMERUS 2 views were obtained. There is no acute fracture or dislocation. The joint spaces are intact. There is no soft tissue abnormality. IMPRESSION: No acute bony abnormality. Reviewed, Interpreted and Dictated by Myke Szymanski III, MD Transcribed by Katherin Moon Authenticated by Myke Szymanski III, MD on 08/20/2021 05:00:57 PM [facility]
--- NOTE | 2021-08-20 16:01 | CT_ITS ---
FINAL REPORT CLINICAL HISTORY: fall COMPARISON: May 12, 2020 FINDINGS: Axial images of the head were obtained without contrast. Coronal reformatted images were also obtained. This study was performed with techniques to keep radiation doses as low as reasonably achievable (ALARA). Individualized dose reduction techniques using automated exposure control or adjustment of mA and/or kV according to the patient's size were employed. There is generalized age appropriate atrophy. There is no evidence of intracranial hemorrhage or mass. The ventricular size is within normal limits. There is no evidence of shift of the midline structures. No skull abnormality is seen on the bone window images. There is mucosal thickening in multiple sinuses with a fluid level in the right maxillary sinus consistent with sinusitis. IMPRESSION: No acute intracranial abnormality. Sinusitis. Reviewed, Interpreted and Dictated by Myke Szymanski III, MD Transcribed by Jani Suazo Authenticated by Myke Szymanski III, MD on 08/20/2021 04:59:50 PM [facility]
--- NOTE | 2021-08-20 16:01 | CT_ITS ---
FINAL REPORT CLINICAL HISTORY: fall FINDINGS: Axial CT images of the cervical spine were obtained without contrast. Sagittal and coronal reformatted images were also obtained. This study was performed with techniques to keep radiation doses as low as reasonably achievable (ALARA). Individualized dose reduction techniques using automated exposure control or adjustment of mA and/or kV according to the patient's size were employed. There is no evidence of fracture or dislocation. The bony alignment is normal. There are mild degenerative changes with small osteophytes. There is no evidence of canal stenosis. No paraspinous soft tissue abnormality is seen. Limited images of the upper thorax are unremarkable. IMPRESSION: No fracture or acute bony abnormality identified. Reviewed, Interpreted and Dictated by Myke Szymanski III, MD Transcribed by Jani Suazo Authenticated by Myke Szymanski III, MD on 08/20/2021 04:59:54 PM [facility]
--- NOTE | 2021-08-20 16:28 | HMH.EDGENADL ---
ED Disposition Clinical Impression: Fall Qualifiers: Encounter type: initial encounter Qualified Code(s): W19.XXXA - Unspecified fall, initial encounter Cervical strain Qualifiers: Encounter type: initial encounter Qualified Code(s): S16.1XXA - Strain of muscle, fascia and tendon at neck level, initial encounter Strain of right hip Qualifiers: Encounter type: initial encounter Qualified Code(s): S76.011A - Strain of muscle, fascia and tendon of right hip, initial encounter Contusion of left arm Qualifiers: Encounter type: initial encounter Qualified Code(s): S40.022A - Contusion of left upper arm, initial encounter Contusion of right foot Qualifiers: Encounter type: initial encounter Qualified Code(s): S90.31XA - Contusion of right foot, initial encounter Disposition: Home, Self-Care Condition on Discharge: Good Additional Instructions: Ibuprofen as needed for pain. Rest, ice 20 minutes 4-5 times a day for the next 2 to 3 days. Follow-up with primary care provider next week if not improved. Prescriptions: Ibuprofen [Ibuprofen 800mg Tablet] 800 mg PO Q8HP PRN #15 tab PRN Reason: Moderate Pain Transmission Status: Pending to [facility] Referrals: Dudley Caldwell MD [Primary Care Provider] - - Critical Care Critical Care Time: No Attestation: On 08/20/21, the high probability of a clinically significant, sudden or life threatening deterioration of the following system(s) required my full and direct attention, intervention and personal management. The time I documented below is in addition to time spent performing reported procedures but includes the following listed in this critical care notation. Medical Decision Making - Romie Inquiry Pt receiving controlled substance: No Vital Signs: 08/20/21 15:24 Temperature 98.2 F Temperature Source Oral Pulse Rate [Radial] 75 Respiratory Rate 16 Blood Pressure [Right Arm] 133/74 Blood Pressure Mean [Right Arm] 93 Blood Pressure Position [Right Arm] Sitting 02 Sat by Pulse Oximetry 98 Oxygen Delivery Method Room Air - Radiology Data #1 Image(s): Shoulder, Humerus, Hip, Foot/Toes Image Reviewed: Yes I reviewed the patient's radiology image, Yes I have reviewed radiologist's interpretation Ordering Physician: Les Paige MD Date of Service: 08/20/21 Procedure(s): XR humerus LT Accession Number(s): [id number] cc: Dudley Caldwell MD; Myke Szymanski MD~ FINAL REPORT CLINICAL HISTORY: fall FINDINGS: LEFT HUMERUS 2 views were obtained. There is no acute fracture or dislocation. The joint spaces are intact. There is no soft tissue abnormality. IMPRESSION: No acute bony abnormality. Reviewed, Interpreted and Dictated by Myke Szymanski III, MD Transcribed by Katherin Moon Authenticated by Myke Szymanski III, MD on 08/20/2021 05:00:57 PM [facility] Ordering Physician: Les aPige MD Date of Service: 08/20/21 Procedure(s): XR shoulder LT min 2V Accession Number(s): [id number] cc: Dudley Caldwell MD; Myke Szymanski MD~ FINAL REPORT CLINICAL HISTORY: fall injury FINDINGS: LEFT SHOULDER 3 views of the left shoulder were obtained. There is no acute fracture or dislocation. Visualized joint spaces are normally aligned. Soft tissues are unremarkable. IMPRESSION: No acute bony abnormality. Reviewed, Interpreted and Dictated by Myke Szymanski III, MD Transcribed by Katherin Moon Authenticated by Myke Szymanski III, MD on 08/20/2021 05:00:06 PM [facility] Ordering Physician: Les Paige MD Date of Service: 08/20/21 Procedure(s): XR hip RT 2-3V w/pelvis Accession Number(s): [id number] cc: Dudley Caldwell MD; Myke Szymanski MD~ FINAL REPORT CLINICAL HISTORY: fall FINDINGS: RIGHT HIP Two views of the right hip including an AP pelvis demonstrate no acute fracture or dislocation. The joint spaces appear normal. The visualized bony structures
[2021-08-20 18:07] VITALS: BP 119/67; PULSE 78; RESP 16; TEMP 36.6; O2SAT 98
== END 2021-08-20 18:08 | disposition home or self-care (01) ==
PROVIDERS: Emergency Provider Emergency Medicine; PCP Internal Medicine Adolescent Medicine
DX: S16.1XXA Strain of muscle, fascia and tendon at neck level, initial encounter (principal); S76.011A Strain of muscle, fascia and tendon of right hip, initial encounter; S46.912A Strain of unspecified muscle, fascia and tendon at shoulder and upper arm level, left arm, initial encounter; S96.911A Strain of unspecified muscle and tendon at ankle and foot level, right foot, initial encounter; V58.4XXA Person boarding or alighting a pick-up truck or van injured in noncollision transport accident, initial encounter; F17.210 Nicotine dependence, cigarettes, uncomplicated
CPT/HCPCS: 70450; 72125; 73030; 73060; 73502; 73630; 96372; 99282

== ENCOUNTER 2021-10-15 21:30 | Emergency (ER) | payer OTHER, SELFPAY ==
[2021-10-15 21:30] VITALS: BP 138/78; PULSE 77; RESP 22; TEMP 36.9; O2SAT 97; BMI 28.3
--- NOTE | 2021-10-15 21:30 | ECG_ITS ---
APPROVED REPORT Exam: Resting ECG HR:74 bpm ECG Measurements Heart Rate 74 AXES TX 141 P 77 QRSd 87 QRS 72 QT 369 T 55 QTc 397 Conclusion SINUS RHYTHM WITH SINUS ARRHYTHMIA NORMAL ECG UNCONFIRMED REPORT Electronically signed by : Christiano Acosta MD 10/17/2021 15:06:07
--- NOTE | 2021-10-15 21:36 | XR_ITS ---
PROCEDURE INFORMATION: Exam: XR Chest Exam date and time: 10/15/2021 9:36 PM Age: 40 years old Clinical indication: Sternal or substernal pain; Patient HX: Chest pain, smoker. No chest surgeries. TECHNIQUE: Imaging protocol: XR of the chest. Views: 1 view. COMPARISON: CR XR CHEST 2V 12/14/2019 7:06 PM FINDINGS: Lungs: Mild atelectasis in the lung bases. Granulomatous changes. No consolidation. Pleural spaces: Unremarkable. No pleural effusion. No pneumothorax. Heart/Mediastinum: Unremarkable. No cardiomegaly. Bones/joints: Unremarkable. IMPRESSION: No acute findings.
[2021-10-15 21:51] LABS: Basophils # 0.3 K/mm3 (0-0.2); Basophils % 2.2 % (0.1-2.0); Eosinophils # 0.3 K/mm3 (0.0-0.4); Eosinophils % 2.6 % (0.1-12.0); Hematocrit 42.6 % (37.0-47.0); Hemoglobin 13.8 g/dL (12.2-16.2); Lymphocytes # 4.7 K/mm3 (0.7-4.5); Lymphocytes % 38.1 % (10-50); Mean Corpuscular HGB Conc 32.3 g/dL (31.8-35.4); Mean Corpuscular Hemoglobin 31.3 pg (27.0-31.2); Mean Corpuscular Volume 96.8 fl (81-99); Mean Platelet Volume 8.2 fl (7.4-10.4); Monocytes # 0.6 K/mm3 (0.1-1.0); Monocytes % 4.9 % (1.7-9.3); Neutrophils # 6.4 K/mm3 (1.8-7.8); Neutrophils % 52.2 % (37.0-80.0); Platelet Count 309 K/mm3 (142-424); Red Cell Distribution Width 13.4 % (11.5-17.5); White Blood Count 12.2 K/mm3 (4.8-10.8)
[2021-10-15 21:57] LABS: Chloride 107 mmol/L (98-107); Potassium 3.7 mmoL/L (3.5-5.1); Sodium 139 mmol/L (136-145)
[2021-10-15 22:00] VITALS: BP 112/78; PULSE 91; RESP 19; O2SAT 97
[2021-10-15 22:00] LABS: Alanine Aminotransferase 28 U/L (12-78); Albumin Level 4.3 g/dl (3.5-5.0); Albumin/Globulin Ratio 1.7 (1.1-1.8); Alkaline Phosphatase 67 U/L (38-126); Anion Gap 10.7 mEq/L (5-15); Aspartate Amino Transferase 27 U/L (14-36); Bilirubin,Total 0.3 mg/dl (0.2-1.3); Blood Urea Nitrogen 13 mg/dl (7-17); Carbon Dioxide 25 mmol/L (22.0-30.0); Creatinine Clearance Estimated 130 mL/min (50-200); Estimated Glomerular Filt Rate 93 ml/min (>60); GFR (African American) 112 ML/MIN (>60); Globulin 2.5 g/dL (1.3-3.2); Total Protein,Serum 6.8 g/dl (6.3-8.2)
[2021-10-15 22:01] LABS: Calcium 8.2 mg/dl (8.4-10.2); Glucose 110 mg/dl (74-100)
[2021-10-15 22:20] LABS: Troponin I < 0.01 ng/ml (0.00-0.034)
--- NOTE | 2021-10-15 22:24 | PC.NURSE ---
Checked pt condition. Adjusted head of bed for pt. No needs.
--- NOTE | 2021-10-15 22:35 | HMH.EDGENADL ---
ED Disposition Clinical Impression: Nontraumatic chest pain Disposition: Home, Self-Care Condition on Discharge: Good Additional Instructions: Okay to take Pepcid daily for the next 7 to 10 days, as well as Tylenol and Motrin for your pain. Follow-up with your primary care physician within the next 7 to 10 days. Return to ED with new, worsening, concerning symptoms. Referrals: Dudley Caldwell MD [Primary Care Provider] - - Critical Care Critical Care Time: No Attestation: On 10/15/21, the high probability of a clinically significant, sudden or life threatening deterioration of the following system(s) required my full and direct attention, intervention and personal management. The time I documented below is in addition to time spent performing reported procedures but includes the following listed in this critical care notation. Medical Decision Making - Medical Records Medical records reviewed: Yes: I reviewed the patient's medical records. - Romie Inquiry Pt receiving controlled substance: No Vital Signs: 10/15/21 21:30 10/15/21 22:00 Temperature 98.4 F Temperature Source Oral Pulse Rate 91 H Pulse Rate [Right Radial] 77 Respiratory Rate 22 19 Blood Pressure 112/78 Blood Pressure [Right Arm] 138/78 Blood Pressure Mean [Right Arm] 98 Blood Pressure Source [Right Arm] Automatic Cuff Blood Pressure Position [Right Arm] Supine 02 Sat by Pulse Oximetry 97 97 Oxygen Delivery Method Room Air - Lab Data Lab Results 10/15/21 21:35: WBC 12.2 H, RBC 4.40, Hgb 13.8, Hct 42.6, MCV 96.8, MCH 31.3 H, MCHC 32.3, RDW 13.4, Plt Count 309, MPV 8.2, Neut % (Auto) 52.2, Lymph % (Auto) 38.1, [place] % (Auto) 4.9, Eos % (Auto) 2.6, Baso % (Auto) 2.2 H, Neut # (Auto) 6.4, Lymph # (Auto) 4.7 H, [place] # (Auto) 0.6, Eos # (Auto) 0.3, Baso # (Auto) 0.3 H 10/15/21 21:35: Sodium 139, Potassium 3.7, Chloride 107, Carbon Dioxide 25, Anion Gap 10.7, BUN 13, Creatinine 0.70, Estimated Creat Clear 130, Estimated GFR 93, Est GFR ( Amer) 112, Glucose 110 H, Calcium 8.2 L, Total Bilirubin 0.3, AST 27, ALT 28, Alkaline Phosphatase 67, Troponin I < 0.01, Total Protein 6.8, Albumin 4.3, Globulin 2.5, Albumin/Globulin Ratio 1.7 10/15/21 23:23: Troponin I < 0.01 Result diagrams: 10/15/21 21:35 10/15/21 21:35 Orders (Tests/Meds): ED MEDICATIONS Discontinued Medications Generic Name Dose Route Start Last Admin Trade Name Evangelist PRN Reason Stop Dose Admin Acetaminophen 650 mg 10/15/21 23:06 10/15/21 23:16 Acetaminophen 325mg Tab PO 10/15/21 23:07 650 mg ONCE ONE Administration Belladonna Alkaloids 60 ml 10/15/21 21:38 10/15/21 21:43 Gi Cocktail 60ml Udc PO 10/15/21 21:39 60 ml ONCE ONE Administration Ketorolac Tromethamine 15 mg 10/15/21 23:07 10/15/21 23:16 Ketorolac 30mg/Ml Vial IV 10/15/21 23:08 15 mg ONCE ONE Administration ORDERS Category Date Time Status ECG Request by /Yared Stat Y 10/15/21 21:36 Ordered - Radiology Data #1 Image(s): Chest Image Reviewed: Yes I reviewed the patient's radiology results, Yes I have reviewed radiologist's interpretation FINDINGS: Lungs: Mild atelectasis in the lung bases. Granulomatous changes. No consolidation. Pleural spaces: Unremarkable. No pleural effusion. No pneumothorax. Heart/Mediastinum: Unremarkable. No cardiomegaly. Bones/joints: Unremarkable. IMPRESSION: No acute findings. Medical Decision Narrative: 40-year-old female with no prior past medical history presenting to the ED with chest pain. Differential diagnoses include ACS, pneumonia, pneumothorax, pleural effusion, COPD exacerbation, GERD. Given this work-up will include EKG, troponins, chest x-ray, CBC, CMP. Patient vital signs are currently stable. Her EKG is normal sinus rhythm with a rate of 74 bpm, normal axis, no ST segment elevation or ST depression, no T wave inversions, no evidence of ischemia. Labs relatively unremarkable, initial tro
[2021-10-15 23:00] VITALS: BP 101/57; PULSE 68; RESP 14; O2SAT 95
[2021-10-15 23:59] LABS: Troponin I < 0.01 ng/ml (0.00-0.034)
--- NOTE | 2021-10-16 00:14 | PC.NURSE ---
Pt updated on negative trop and informed MD with get her d/c paperwork ready
[2021-10-16 00:41] VITALS: BP 118/77; PULSE 67; RESP 16; TEMP 36.6; O2SAT 97
== END 2021-10-16 00:44 | disposition home or self-care (01) ==
PROVIDERS: Emergency Provider Emergency Medicine; PCP Internal Medicine Adolescent Medicine
DX: R07.89 Other chest pain (principal); F17.210 Nicotine dependence, cigarettes, uncomplicated; Z90.710 Acquired absence of both cervix and uterus
CPT/HCPCS: 71045; 80053; 84484; 85025; 93005; 96374; 99284

== ENCOUNTER 2022-02-27 19:20 | Emergency (ER) | payer OTHER, SELFPAY ==
[2022-02-27 19:38] VITALS: PULSE 78; RESP 18; TEMP 36.9; O2SAT 98; BMI 24.2
[2022-02-27 19:45] VITALS: PULSE 78; RESP 16; TEMP 36.9; O2SAT 98; BMI 24.0
[2022-02-27 19:54] LABS: UTC Strep Screen (Rapid) Positive (Negative)
--- NOTE | 2022-02-27 20:09 | HMH.EDUTC ---
[facility] Disposition Clinical Impression: Strep throat Disposition: Home, Self-Care Condition on Discharge: Good Instructions: DI for Strep Throat, Strep Throat, Cephalexin Additional Instructions: *Monitor Temp, Over the counter Motrin or Tylenol as directed/as needed Tylenol every 4 hours and Motrin every 6 hours (as long as your family doctor has told you that you can take it) for fever or pain. and straight to ER if unable to lower temp less than 101.0 after medication given *Warm salt water gargles may help to soothe the throat *Throat Lozenges *Warm fluids like tea with honey may help to soothe the throat *Sleep elevated *Humidifier/Vaporizer If you did not take Penicillin shot or was unable to, start taking antibiotic immediately and make sure that you take it for the FULL length of time although you should start to feel better in 24-48 hours *change toothbrush and toothpaste 24-48 hours after starting to take antibiotics so you do not reinfect yourself Monitor Temp. Tylenol and/or Ibuprofen as needed. ER if fever is no less than 101 despite alternating Tylenol and Ibuprofen * Encourage fluids, water, Gatorade, powerade, pedialyte if /toddler/or child *Cold fluids, popsicles and ice cream may feel good on his throat Follow up IMMEDIATELY for new or worsening symptoms or no Noticeable improvement over the next 48-72 hours. 911 for difficulty breathing or swallowing Prescriptions: cephALEXin [cephALEXin 500mg capsule*] 500 mg PO BID 10 Days #20 cap Transmission Status: Pending to [facility] Referrals: Dudley Caldwell MD [Primary Care Provider] - As needed Time of Disposition: 20:12 Medical Decision Making - Romie Inquiry Pt receiving controlled substance: No Romie was queried for this patient: No Vital Signs: 02/27/22 19:38 02/27/22 19:45 Temperature 98.5 F 98.5 F Temperature Source Oral Oral Pulse Rate [Right] 78 78 Respiratory Rate 18 16 02 Sat by Pulse Oximetry 98 98 Oxygen Delivery Method Room Air - Lab Data Lab results reviewed: Yes: I reviewed the patient's lab results. Lab Results 02/27/22 19:50: Strep Scn Rapid Clinic Positive A [facility] HPI - General Stated complaint: sore throat Time Seen by Provider: 02/27/22 20:09 Mode of Arrival: Ambulatory Source of Information: Patient Limitations: No Limitations Description of Symptoms (Recalled from Triage Doc. by RN): c/o sore throat HEENT Symptoms (Recalled from RN notes): Yes Resp Symptoms (Recalled from RN notes): No Skin Symptoms (Recalled from RN notes): No MS Symptoms (Recalled from RN notes): No Functional Status (Recalled from RN notes): na - History of Present Illness Provider Complaint: Patient states that she has been having sore throat that has continued to get worses over the last couple of days States that she feels like she may have strep throat so she came in to get checked - Related Data Previous Rx's Medication Instructions Recorded Ibuprofen [Ibuprofen 800mg Tab] 800 mg PO Q8HP PRN #15 tab 12/14/19 Cyclobenzaprine HCl 5 mg PO Q8HP PRN #30 tab 05/12/20 [Cyclobenzaprine 5mg Tab] Ketorolac Tromethamine [Toradol 10 mg PO Q6H 5 Days #20 tab 05/12/20 10mg tablet] Ibuprofen [Ibuprofen 800mg 800 mg PO Q8HP PRN #15 tab 08/20/21 Tablet] cephALEXin [cephALEXin 500mg 500 mg PO BID 10 Days #20 cap 02/27/22 capsule*] Allergies Allergy/AdvReac Type Severity Reaction Status Date / Time No Known Allergies Allergy Verified 12/14/19 18:31 - Worker's Comp Is this a Worker's Comp case?: No [facility] History - Hepatitis A Screen Attestation statement:: This patient has been screened for Hepatitis A risk factors. I have reviewed the patient's past medical history: Yes Medical History: Denies:: Cancer, Diabetes Mellitus Type 1, Diabetes Mellitus Type 2, Hypertension, Internal Pacemaker, MRSA, Seizures Other Medical History: Denies: Blood Transfusion Reaction Other Surgeries: Yes: Hystere
[2022-02-27 20:18] VITALS: BP 137/87; PULSE 78; RESP 16; TEMP 36.9; O2SAT 98
== END 2022-02-27 20:19 | disposition home or self-care (01) ==
LOC: ER 19:35 → UTC 19:39
PROVIDERS: Emergency Provider Nurse Practitioner; PCP Internal Medicine Adolescent Medicine
DX: J02.0 Streptococcal pharyngitis (principal); B95.0 Streptococcus, group A, as the cause of diseases classified elsewhere; F17.210 Nicotine dependence, cigarettes, uncomplicated; Z79.1 Long term (current) use of non-steroidal anti-inflammatories (NSAID); Z82.49 Family history of ischemic heart disease and other diseases of the circulatory system; Z83.3 Family history of diabetes mellitus
CPT/HCPCS: 87880; 99213; G0463

== ENCOUNTER 2022-12-08 22:03 | Emergency (ER) | payer OTHER, SELFPAY ==
[2022-12-08 22:03] VITALS: BP 156/96; PULSE 85; RESP 17; TEMP 36.8; O2SAT 99; BMI 29.1
--- NOTE | 2022-12-08 22:04 | CT_ITS ---
PROCEDURE INFORMATION: Exam: CT Head Without Contrast Exam date and time: 12/08/2022 10:53 PM Age: 42 years old Clinical indication: Pain; Headache; Additional info: Posterior neck pain, posterior WARD TECHNIQUE: Imaging protocol: Computed tomography of the head without contrast. Radiation optimization: All CT scans at this facility use at least one of these dose optimization techniques: automated exposure control; mA and/or kV adjustment per patient size (includes targeted exams where dose is matched to clinical indication); or iterative reconstruction. REPORTING DATA: Count of CT and Cardiac NM exams in prior 12 months: This patient has received 0 known CTs and 0 known cardiac nuclear medicine studies in the 12 months prior to the current study. COMPARISON: CT HEAD/BRAIN WO CON 08/20/2021 4:24 PM FINDINGS: Brain: No evidence of acute intracranial hemorrhage. No acute parenchymal edema. No mass or shift. Cerebral ventricles: No ventriculomegaly. Paranasal sinuses: Visualized sinuses are unremarkable. No fluid levels. Mastoid air cells: Unremarkable as visualized. No mastoid effusion. Bones/joints: No acute fracture. Soft tissues: Unremarkable. IMPRESSION: No acute intracranial process.
--- NOTE | 2022-12-08 22:04 | CT_ITS ---
PROCEDURE INFORMATION: Exam: CTA Head With Contrast, Arteriography Exam date and time: 12/08/2022 10:55 PM Age: 42 years old Clinical indication: Pain; Headache; Additional info: Posterior neck pain, WARD TECHNIQUE: Imaging protocol: Computed tomographic angiography of the head with contrast. Exam focused on the arteries. 3D rendering (Not supervised by radiologist): MIP and/or 3D reconstructed images were created by the technologist. Radiation optimization: All CT scans at this facility use at least one of these dose optimization techniques: automated exposure control; mA and/or kV adjustment per patient size (includes targeted exams where dose is matched to clinical indication); or iterative reconstruction. Contrast material: ISOVUE; Contrast volume: 100 ml; Contrast route: INTRAVENOUS (IV); REPORTING DATA: Count of CT and Cardiac NM exams in prior 12 months: This patient has received 0 known CTs and 0 known cardiac nuclear medicine studies in the 12 months prior to the current study. COMPARISON: CT HEAD/BRAIN WO CON 12/08/2022 10:53 PM FINDINGS: ANTERIOR CIRCULATION: Right internal carotid artery: Intracranial segment is patent with no significant stenosis. No aneurysm. Right middle cerebral artery: No occlusion or significant stenosis. No aneurysm. Right anterior cerebral artery: No occlusion or significant stenosis. No aneurysm. Left internal carotid artery: Intracranial segment is patent with no significant stenosis. No aneurysm. Left middle cerebral artery: No occlusion or significant stenosis. No aneurysm. Left anterior cerebral artery: No occlusion or significant stenosis. No aneurysm. POSTERIOR CIRCULATION: Right vertebral artery: No occlusion or significant stenosis. No aneurysm. Left vertebral artery: No occlusion or significant stenosis. No aneurysm. Basilar artery: No occlusion or significant stenosis. No aneurysm. Right posterior cerebral artery: No occlusion or significant stenosis. No aneurysm. Left posterior cerebral artery: No occlusion or significant stenosis. No aneurysm. Brain: No definite mass, mass effect, or midline shift. Cerebral ventricles: No ventriculomegaly. Bones/joints: Unremarkable. No acute fracture. Soft tissues: Unremarkable. IMPRESSION: No large vessel stenosis or occlusion. PROCEDURE INFORMATION: Exam: CTA Neck With Contrast Exam date and time: 12/08/2022 10:55 PM Age: 42 years old Clinical indication: Pain; Headache; Additional info: Posterior neck pain, WARD TECHNIQUE: Imaging protocol: Computed tomographic angiography of the neck with contrast. REPORTING DATA: Count of CT and Cardiac NM exams in prior 12 months: This patient has received 0 known CTs and 0 known cardiac nuclear medicine studies in the 12 months prior to the current study. COMPARISON: CT SOFT TISSUE NECK WO CON 05/12/2020 5:37 PM FINDINGS: Right common carotid artery: No significant stenosis. No dissection or occlusion. Right internal carotid artery: The extracranial segment is patent with no significant stenosis. No dissection or occlusion. Right external carotid artery: No occlusion or significant stenosis. Left common carotid artery: No significant stenosis. No dissection or occlusion. Left internal carotid artery: The extracranial segment is patent with no significant stenosis. No dissection or occlusion. Left external carotid artery: No occlusion or significant stenosis. Right vertebral artery: No significant stenosis. No dissection or occlusion. Left vertebral artery: No significant stenosis. No dissection or occlusion.
--- NOTE | 2022-12-08 22:06 | HMH.EDGENADL ---
Discharge Plan Disposition Patient Disposition: Home, Self-Care Chief Complaint: Neck Pain/Injury Prescriptions Prescriptions: No Action mupirocin 2 % ointment 1 applic topical BID Qty: 15 0RF cephalexin 500 mg capsule 500 mg PO TID 7 Days Qty: 21 0RF ibuprofen 800 MG tablet 800 mg PO Q8HP PRN (Reason: Moderate Pain) Qty: 15 0RF Referrals Follow up/Referrals: Provider,Referral, MD [Referring] - See instructions Activity Restrictions/Add. Instructions Additional Instructions/Restrictions: At this time was felt you are safe to be discharged home. If new or worsening symptoms please not hesitate to return for continued evaluation. Clinical Impressions Clinical Impression: Headache Instructions Patient Instructions: DI for Neck Pain Discharge ED Provider: Iron Angulo General Adult HPI General Chief complaint: Neck Pain/Injury Stated complaint: NECK PAIN Time Seen by Provider: 12/08/22 22:06 History of Present Illness HPI narrative: Patient is a 42-year-old female with past medical history of chronic headaches who presents emergency department for evaluation of headache. History is obtained by patient and EMS at bedside. Patient normally has headaches approximately 3 times a week, bifrontal, no associated photophobia or phonophobia. Patient was under significant stress when she was witnessing an argument between her relatives when she had a severe sharp pain in the posterior aspect of her left neck radiating up into the base of her skull with severe pain. No photophobia or phonophobia. It is persistent. She presents here for continued evaluation. No difficulty of speech, no acute weakness. Related Data Previous Rx's Medication Instructions Recorded ibuprofen 800 mg tablet 800 mg PO Q8HP PRN Moderate Pain 08/20/21 #15 tabs cephalexin 500 mg capsule 500 mg PO TID 7 days #21 caps 08/17/22 mupirocin 2 % topical ointment 1 applic topical BID #15 grams 08/17/22 Allergies Allergy/AdvReac Type Severity Reaction Status Date / Time No Known Allergies Allergy Verified 08/17/22 14:37 [facility] Disclaimer: The information contained in this section may have been updated after the patient was seen, as this information can be updated by other users. Social History Smoking Status: Current every day smoker tobacco type: cigarettes packs per day: 1 alcohol intake: never current occupational status: employed Travel in the last 8 weeks: None household members: spouse housing: house current occupational exposures/hazards: No caffeine: Yes ROS Obtained: Yes Systems reviewed as appropriate & no additional complaints except as documented Physical Exam General General appearance: alert and other (Appearing upset in bed) Head Head exam: atraumatic and normocephalic Eye Eye exam: Present PERRL and EOMI ENT ENT exam: Present mucous membranes moist Neck Neck exam: Present normal inspection Chest Chest inspection: Present normal inspection and symmetric chest wall rise Respiratory Respiratory exam: Present normal lung sounds bilaterally; Absent respiratory distress Cardiovascular Cardiovascular exam: Present regular rate and normal rhythm Abdominal Exam Abdominal exam: Present soft; Absent tenderness Extremities Exam Extremities exam: Present normal inspection Neurological Exam Neurological exam: Present alert, oriented X3 and CN II-XII intact; Absent motor sensory deficit (Motor strength 5 out of 5 in all extremities, sensation intact to light touch distally) Psychiatric Psychiatric exam: Present normal affect Skin Skin exam: Present warm and dry Medical Decision Making Romie Inquiry Pt receiving controlled substance: No Vital Signs: 12/08/22 22:03 12/08/22 22:31 12/08/22 23:30 Temperature 98.3 F Temperature Source Oral Pulse Rate 80 82 Pulse Rate [Right] 85 Respiratory Rate 17 Blood Pressur
[2022-12-08 22:31] VITALS: BP 117/62; PULSE 80; O2SAT 98
[2022-12-08 22:37] LABS: Chloride 103 mmol/L (98-107)
[2022-12-08 22:38] LABS: Potassium 3.7 mmoL/L (3.5-5.1); Sodium 142 mmol/L (136-145)
[2022-12-08 22:40] LABS: HCG Qualitative, Serum Negative (Negative)
[2022-12-08 22:41] LABS: Anion Gap 14.7 mEq/L (5-15); Blood Urea Nitrogen 16 mg/dl (7-17); Calcium 9.3 mg/dl (8.4-10.2); Carbon Dioxide 28 mmol/L (22.0-30.0); Creatinine Clearance Estimated 131 mL/min (50-200); Estimated Glomerular Filt Rate 92 ml/min (>60); GFR (African American) 111 ML/MIN (>60); Glucose 93 mg/dl (74-100)
[2022-12-08 22:42] LABS: Basophils # 0.1 K/mm3 (0-0.2); Basophils % 1.1 % (0.1-2.0); Eosinophils # 0.3 K/mm3 (0.0-0.4); Eosinophils % 2.4 % (0.1-12.0); Hematocrit 43.7 % (37.0-47.0); Hemoglobin 14.5 g/dL (12.2-16.2); Lymphocytes # 4.9 K/mm3 (0.7-4.5); Lymphocytes % 42.7 % (10-50); Mean Corpuscular HGB Conc 33.1 g/dL (31.8-35.4); Mean Corpuscular Hemoglobin 31.4 pg (27.0-31.2); Mean Corpuscular Volume 94.9 fl (81-99); Mean Platelet Volume 8.2 fl (7.4-10.4); Monocytes # 0.6 K/mm3 (0.1-1.0); Monocytes % 5.6 % (1.7-9.3); Neutrophils # 5.5 K/mm3 (1.8-7.8); Neutrophils % 48.2 % (37.0-80.0); Platelet Count 307 K/mm3 (142-424); Red Blood Count 4.61 M/mm3 (4.20-5.40); Red Cell Distribution Width 13.2 % (11.5-17.5); White Blood Count 11.5 K/mm3 (4.8-10.8)
--- NOTE | 2022-12-08 22:49 | PC.NURSE ---
Pt gone to RAD via stretcher
[2022-12-08 23:30] VITALS: BP 121/70; PULSE 82; O2SAT 97
[2022-12-09] VITALS: BP 122/83; PULSE 83; O2SAT 95
[2022-12-09 01:15] VITALS: BP 145/70; PULSE 82; RESP 15; TEMP 36.8; O2SAT 98
== END 2022-12-09 01:21 | disposition home or self-care (01) ==
PROVIDERS: Emergency Provider Emergency Medicine; PCP Internal Medicine Adolescent Medicine
DX: R51.9 Headache, unspecified (principal); M54.2 Cervicalgia; F17.210 Nicotine dependence, cigarettes, uncomplicated
CPT/HCPCS: 70450; 70496; 70498; 80048; 84703; 85025; 96361; 96374; 96375; 99284; 99285; Q9967

== ENCOUNTER 2023-04-08 10:59 | Emergency (ER) | payer OTHER, SELFPAY ==
--- NOTE | 2023-04-08 11:12 | EXP.UTC ---
Discharge Plan Disposition Patient Disposition: Home, Self-Care Condition: Good Prescriptions Prescriptions: New prednisone 10 mg tablet 10 mg PO BID 3 Days Qty: 6 0RF azithromycin [Zithromax] 250 mg tablet 250 mg PO UD DOSE PK Qty: 6 0RF Rx Instructions: Take two (2) tablets today, then one (1) tablet days #2 thru #5 benzonatate [benzonatate] 100 mg capsule 100 mg PO TIDP PRN (Reason: Cough) Qty: 30 0RF No Action mupirocin 2 % ointment 1 applic topical BID Qty: 15 0RF cephalexin 500 mg capsule 500 mg PO TID 7 Days Qty: 21 0RF ibuprofen 800 MG tablet 800 mg PO Q8HP PRN (Reason: Moderate Pain) Qty: 15 0RF Referrals Follow up/Referrals: Christiano Acosta MD [Primary Care Provider] - See instructions Activity Restrictions/Add. Instructions Additional Instructions/Restrictions: Drink plenty of fluids. Take tylenol or ibuprofen for pain or fever. Take the medications as directed. Follow up with your regular doctor. GO TO THE ER FOR ANY WORSENING SYMPTOMS Clinical Impressions Clinical Impression: Sinusitis, Acute viral syndrome Instructions Patient Instructions: Sinusitis, DI for Sinusitis, DI for Viral Syndrome, Coronavirus Disease 2019, Preventing the Spread of Coronavirus Discharge Instructions Discharge ED Provider: Dudley Gusman [facility] General Stated complaint: sore throat,congestion Time Seen by Provider: 04/08/23 11:12 History of Present Illness Provider Complaint: She states that since yesterday she has had fever, chills, sore throat, sinus congestion and malaise. Related Data Previous Rx's Medication Instructions Recorded ibuprofen 800 mg tablet 800 mg PO Q8HP PRN Moderate Pain 08/20/21 #15 tabs cephalexin 500 mg capsule 500 mg PO TID 7 days #21 caps 08/17/22 mupirocin 2 % topical ointment 1 applic topical BID #15 grams 08/17/22 azithromycin 250 mg tablet 250 mg PO UD DOSE PK #6 tabs 04/08/23 (Zithromax) benzonatate 100 mg capsule 100 mg PO TIDP PRN Cough #30 caps 04/08/23 prednisone 10 mg tablet 10 mg PO BID 3 days #6 tabs 04/08/23 Allergies Allergy/AdvReac Type Severity Reaction Status Date / Time No Known Allergies Allergy Verified 08/17/22 14:37 [facility] Disclaimer: The information contained in this section may have been updated after the patient was seen, as this information can be updated by other users. Medical History (Updated 04/08/23 @ 11:58 by Dudley Gusman APRN) Anxiety Depression Surgical History (Updated 04/08/23 @ 11:27 by Ramonita Hermosillo RN) History of hysterectomy Social History Smoking Status: Current every day smoker tobacco type: cigarettes packs per day: 1 alcohol intake: never current occupational status: employed Travel in the last 8 weeks: None household members: spouse housing: house current occupational exposures/hazards: No caffeine: Yes ROS Obtained: Yes All systems reviewed & no additional complaints except as documented Constitutional Constitutional: Reports chills and Reports fever(s) Eyes Eyes: Denies eye discharge ENT Ears, Nose, Mouth, and Throat: Reports as per HPI Cardiovascular Cardiovascular: Denies chest pain Respiratory Respiratory: Denies chest congestion and Reports cough Gastrointestinal Gastrointestingal: Reports nausea; Denies abdominal pain, constipation, cramping, diarrhea or vomiting Musculoskeletal Musculoskeletal: Denies arthralgias Integumentary/Breasts Skin/Breast: Denies rash Neurologic Neurologic: Denies paresthesias Physical Exam General General appearance: alert and in no apparent distress Eye Eye exam: Present normal appearance, PERRL and EOMI ENT ENT exam: Present mucous membranes moist and normal external ear exam Expanded ENT Exam External ear exam: Present normal external inspection TM/Canal exam: Bilateral TM: erythema and bulging Nose exam: Absent sinus tenderness
[2023-04-08 11:15] VITALS: BP 121/69; PULSE 72; RESP 20; TEMP 36.6; O2SAT 96; BMI 29.1
[2023-04-08 11:31] LABS: UTC Strep Screen (Rapid) Negative (Negative)
[2023-04-08 11:36] VITALS: BP 121/69; PULSE 72; RESP 20; TEMP 36.6; O2SAT 96
== END 2023-04-08 12:15 | disposition home or self-care (01) ==
PROVIDERS: Emergency Provider Nurse Practitioner Family; PCP Internal Medicine Adolescent Medicine
DX: J01.90 Acute sinusitis, unspecified (principal); R50.9 Fever, unspecified; J02.9 Acute pharyngitis, unspecified; R53.81 Other malaise; B34.9 Viral infection, unspecified; F17.210 Nicotine dependence, cigarettes, uncomplicated; F41.9 Anxiety disorder, unspecified; F32.A Depression, unspecified
CPT/HCPCS: 87880; 99212; 99214; G0463

== ENCOUNTER 2023-06-27 14:08 | Emergency (ER) | payer OTHER, SELFPAY ==
--- NOTE | 2023-06-27 14:13 | XR_ITS ---
PROCEDURE INFORMATION: Exam: XR Right Hand Exam date and time: 06/27/2023 2:07 PM Age: 42 years old Clinical indication: Injury or trauma; Crushing; Right; Injury details: Smashed middle finger between 2 bowling balls TECHNIQUE: Imaging protocol: Radiologic exam of the right hand. Views: 3 or more views. COMPARISON: CR XR WRIST RT MIN 3V 06/13/2019 11:04 PM FINDINGS: Bones/joints: There is a vertically oriented nondisplaced hairline fracture through the 3rd distal phalanx extending from the tuft into the proximal shaft.. Fracture line is best seen in the AP projection. There is an additional fracture of the volar aspect of the 3rd tuft better seen on the oblique view. Remainder of visualized osseous structures appear intact. Soft tissues: Unremarkable. IMPRESSION: Acute nondisplaced fractures of the 3rd distal phalanx as discussed above.
[2023-06-27 14:15] VITALS: BP 120/64; PULSE 75; RESP 18; TEMP 36.8; O2SAT 98; BMI 30.9
--- NOTE | 2023-06-27 14:38 | EXP.UTC ---
Discharge Plan Disposition Patient Disposition: Home, Self-Care Condition: Good Prescriptions Prescriptions: New cephalexin 500 mg capsule 500 mg PO QID Qty: 40 0RF ibuprofen [IBU] 800 mg tablet 800 mg PO Q8HP PRN (Reason: Moderate Pain) Qty: 30 0RF Referrals Follow up/Referrals: Christiano Acosta MD [Primary Care Provider] - See instructions Activity Restrictions/Add. Instructions Additional Instructions/Restrictions: Rest the extremity, Elevate the extremity as tolerated while you are resting. Take ibuprofen for pain. I sent in a prescription to your pharmacy. Follow up with an orthopedic hand specialist physician. The phone number to the hand clinic at is [phone]). Please call and get yourself an appointment. Since your nail is slightly involved, this is considered an open fracture. Open fractures of the hand must be followed by a hand specialist to make sure you don't lose some function or sensation of your hand. Follow up with your regular doctor also. GO TO THE ER FOR ANY WORSENING SYMPTOMS Clinical Impressions Clinical Impression: Open fracture of phalanx of right middle finger Instructions Patient Instructions: Finger Fracture, DI for Finger Fracture Discharge ED Provider: Dudley Gusman [facility] General Stated complaint: AO 06/27 11:30 MIDDLE FINGER SMASHED Mode of Arrival: Ambulatory Source of Information: Patient Limitations: No Limitations Time Seen by Provider: 06/27/23 14:37 Description of Symptoms (Recalled from Triage Doc. by RN): Pt stated that she was bowling and had middle finger smashed between two balls. HEENT Symptoms (Recalled from RN notes): No Resp Symptoms (Recalled from RN notes): No Skin Symptoms (Recalled from RN notes): No MS Symptoms (Recalled from RN notes): Yes Functional Status (Recalled from RN notes): n/a History of Present Illness Provider Complaint: She was bowling earlier today when her right middle finger was caught between 2 bowling balls. She is having pain and swelling of the tip of that finger. Related Data Previous Rx's Medication Instructions Recorded cephalexin 500 mg capsule 500 mg PO QID #40 caps 06/27/23 ibuprofen 800 mg tablet (IBU) 800 mg PO Q8HP PRN Moderate Pain 06/27/23 #30 tabs Allergies Allergy/AdvReac Type Severity Reaction Status Date / Time No Known Allergies Allergy Verified 06/27/23 14:37 Worker's Comp Is this a Worker's Comp case?: No [facility] Disclaimer: The information contained in this section may have been updated after the patient was seen, as this information can be updated by other users. Medical History (Updated 06/27/23 @ 15:19 by Dudley Gusman APRN) Anxiety Depression Surgical History History of hysterectomy Social History Smoking Status: Current every day smoker tobacco type: cigarettes packs per day: 1 alcohol intake: never current occupational status: employed Travel in the last 8 weeks: None household members: spouse housing: house current occupational exposures/hazards: No caffeine: Yes ROS Obtained: Yes All systems reviewed & no additional complaints except as documented Constitutional Constitutional: Denies chills and Denies fever(s) Eyes Eyes: Denies eye discharge ENT Ears, Nose, Mouth, and Throat: Denies dizziness, Denies otalgia and Denies sore throat Cardiovascular Cardiovascular: Denies chest pain Respiratory Respiratory: Denies shortness of breath, Denies chest congestion, Denies cough, Denies stridor and Denies wheezing Gastrointestinal Gastrointestingal: Denies nausea or vomiting Musculoskeletal Musculoskeletal: Reports as per HPI Integumentary/Breasts Skin/Breast: Denies rash and Denies wounds Neurologic Neurologic: Denies dizziness and Denies paresthesias Allergic/Immunologic Allergic/Immunologic: Denies wheezing Physical Exam G
[2023-06-27 15:28] VITALS: BP 120/64; PULSE 75; RESP 18; TEMP 36.8; O2SAT 98
== END 2023-06-27 15:28 | disposition home or self-care (01) ==
PROVIDERS: Emergency Provider Nurse Practitioner Family; PCP Internal Medicine Adolescent Medicine
DX: S62.602B Fracture of unspecified phalanx of right middle finger, initial encounter for open fracture (principal); W23.0XXA Caught, crushed, jammed, or pinched between moving objects, initial encounter; F17.210 Nicotine dependence, cigarettes, uncomplicated
CPT/HCPCS: 73130; 99212; 99214; G0463

== ENCOUNTER 2023-09-07 21:01 | Outpatient (CLI) | payer OTHER, SELFPAY | END 2023-09-07 23:59 | LOC: LAB.DROPOF 21:01 | PROVIDERS: PCP Student in an Organized Health Care Education/Training Program; Visit Provider Student in an Organized Health Care Education/Training Program | DX: R05.9 Cough, unspecified (principal); J02.9 Acute pharyngitis, unspecified | CPT/HCPCS: 87070; 87635 ==

== ENCOUNTER 2024-05-21 19:09 | Emergency (ER) | payer BC, SELFPAY ==
--- NOTE | 2024-05-21 19:11 | ED_ITS ---
Discharge Plan Disposition Patient Disposition: Home, Self-Care Condition: Good Prescriptions Prescriptions: New sulfamethoxazole-trimethoprim [Bactrim DS] 800-160 mg tablet 1 tab PO BID 5 Days Qty: 10 0RF No Action amoxicillin-pot clavulanate 875-125 mg tablet 1 tab PO BID 10 Days Qty: 20 0RF feiduozpqkvxixo-suayscqov-YR [Bromfed DM] 2-30-10 mg/5 mL syrup 10 ml PO Q4-6H PRN (Reason: cough) Qty: 200 0RF ondansetron 4 mg tablet,disintegrating 4 mg PO Q8H PRN (Reason: nausea and vomiting) Qty: 20 0RF Referrals Follow up/Referrals: Christiano Acosta MD [Primary Care Provider] - See instructions Activity Restrictions/Add. Instructions Additional Instructions/Restrictions: Follow-up with your PCP if no improvement or worsening signs or symptoms or return to the ER as needed. Change her packing once a day and as needed. I have sent a prescription to your pharmacy please take till gone. Clinical Impressions Clinical Impression: Abscess Instructions Patient Instructions: DI for Incision and Drainage of a Skin Abscess, DI for Skin Abscess Print Language Print Language: Chinese Discharge ED Provider: Karlos Villanueva General Adult HPI <TRAY Stone - Last Filed: 05/21/24 22:49> General Chief complaint: Skin/Abscess/Foreign Body Stated complaint: Knot on left side groin area,cant hardly walk Time Seen by Provider: 05/21/24 19:11 History of Present Illness HPI narrative: Patient presents for evaluation of a knot in her left groin. Patient states that she noticed a painful area in her left groin that has become more more painful throughout the day. She denies any fever chills hemoptysis hematochezia melena nausea vomiting or diarrhea. Related Data Previous Rx's ?Medication ?Instructions ?Recorded amoxicillin 875 mg-potassium 1 tab PO BID 10 days #20 tabs 05/04/24 clavulanate 125 mg tablet yvueaggxugltmvk-fyzynxmlvjviwcd-GJ 10 ml PO Q4-6H PRN cough #200 mL 05/04/24 2 mg-30 mg-10 mg/5 mL oral syrup (Bromfed DM) ondansetron 4 mg disintegrating 4 mg PO Q8H PRN nausea and 05/04/24 tablet vomiting #20 tabs sulfamethoxazole 800 1 tab PO BID 5 days #10 tabs 05/21/24 mg-trimethoprim 160 mg tablet (Bactrim DS) Allergies Allergy/AdvReac Type Severity Reaction Status Date / Time No Known Allergies Allergy Verified 05/03/24 08:37 PFS <TRAY Stone - Last Filed: 05/21/24 22:49> [facility] Disclaimer: The information contained in this section may have been updated after the patient was seen, as this information can be updated by other users. Medical History (Updated 05/21/24 @ 19:19 by TRAY Stone) Open fracture of phalanx of right middle finger Acute viral syndrome Headache Strep throat Nontraumatic chest pain Contusion of right foot Contusion of left arm Strain of right hip Cervical strain Fall Laceration of thumb Pain in right axilla Sprain and strain of wrist Atypical chest pain UTI (urinary tract infection) Pyelonephritis Contusion of left lower leg, initial encounter Abrasion, left lower leg, initial encounter Laceration Viral upper respiratory illness Depression Anxiety Surgical History History of hysterectomy Family History Other No significant family history Social History Smoking Status: Current every day smoker tobacco type: cigarettes packs per day: 1 alcohol intake: never current occupational status: employed Travel in the last 8 weeks: None household members: spouse housing: house current occupational exposures/hazards: No caffeine: Yes Other Medical History Have you received the Flu Vaccine for this season: No Have you received the Pneumonia Vaccine: No <TRAY Stone - Last Filed: 05/21/24 22:49> ROS Obtained: Yes Systems reviewed as appropriate & no additional complaints except as documented Physical Exam <TRAY Stone - Last Filed: 05/21/24 22:49> General General appearance: alert and in no apparent distress Respiratory Respiratory exam: Present normal lung sounds bilaterally Cardiovascular Cardiovascular exam: Present regular rate Neurological Exam Neurological exam: Present alert and oriented X3 Medical Decision Making <TRAY Stone - Last Filed: 05/21/24 22:49> Medical Records Screening: Per USPSTF and CDC recommendations, given the prevalence of disease in our region, it is our hospital?s policy to screen for HIV and viral Hepatitis for all patients aged 18 and over and those with ongoing risk factors. Romie Inquiry Pt receiving controlled substance: No Vital Signs: 05/21/24 19:17 05/21/24 19:58 Temperature 97.9 F 97.8 F Temperature Source Oral Oral Pulse Rate 90 Pulse Rate [Left Radial] 92 H Respiratory Rate 20 20 Blood Pressure 124/83 Blood Pressure [Right Arm] 162/95 H Blood Pressure Mean [Right Arm] 117 Blood Pressure Source Automatic Cuff Blood Pressure Source [Right Arm] Automatic Cuff Blood Pressure Position Sitting Blood Pressure Position [Right Arm] Sitting 02 Sat by Pulse Oximetry 100 Oxygen Delivery Method Room Air Room Air Lab Data Lab results reviewed: Yes I reviewed the patient's lab results. Orders (Tests/Meds): ED MEDICATIONS Discontinued Medications Generic Name Dose Route Start Last Admin Trade Name Freq PRN Reason Stop Dose Admin Lidocaine HCl 10 ml 05/21/24 19:16 05/21/24 19:23 Lidocaine 1% 10ml Mdv SQ 05/21/24 19:17 10 ml ONCE ONE Administration Trimethoprim/Sulfamethoxazole 1 each 05/21/24 19:16 05/21/24 19:23 Sulfa/Trimethoprim 1 Tablet PO 05/21/24 19:17 1 each ONCE ONE Administration ORDERS Category Date Time Status Wound Culture and Gram Stain Routine Micro 05/21/24 19:50 Received Medical Decision Narrative: In summary patient is a 43-year-old female who presents to the emergency department for evaluation of left groin abscess. Patient is hemodynamically stable upon arrival, afebrile. Physical exam is remarkable for a area right in the intertriginous fold of the left upper thigh in her groin at the level of the vulva that is not in the vulva but more on the thigh. There is a central area of fluctuance with a mild amount of erythema surrounding it. Total area is approximately 2 x 2 cm. Differential diagnosis includes cellulitis versus abscess. Initial workup will be conducted with incision and drainage and wound culture. Initial interventions include incision and drainage Bactrim. Patient was anesthetized with 5 cc of lidocaine and incision was made with an 11 blade and upon entry approximately 3 to 5 cc of bloody purulence was released. Wound was packed with quarter inch iodoform gauze and dressed. Patient is appropriate for discharge with prescription for Bactrim with first dose given now. Patient to follow-up with PCP for recheck this week. <Karlos Villanueva MD - Last Filed: 05/21/24 22:53> Vital Signs: 05/21/24 19:17 05/21/24 19:58 Temperature 97.9 F 97.8 F Temperature Source Oral Oral Pulse Rate 90 Pulse Rate [Left Radial] 92 H Respiratory Rate 20 20 Blood Pressure 124/83 Blood Pressure [Right Arm] 162/95 H Blood Pressure Mean [Right Arm] 117 Blood Pressure Source Automatic Cuff Blood Pressure Source [Right Arm] Automatic Cuff Blood Pressure Position Sitting Blood Pressure Position [Right Arm] Sitting 02 Sat by Pulse Oximetry 100 Oxygen Delivery Method Room Air Room Air Orders (Tests/Meds): ED MEDICATIONS Discontinued Medications Generic Name Dose Route Start Last Admin Trade Name Freq PRN Reason Stop Dose Admin Lidocaine HCl 10 ml 05/21/24 19:16 05/21/24 19:23 Lidocaine 1% 10ml Mdv SQ 05/21/24 19:17 10 ml ONCE ONE Administration Trimethoprim/Sulfamethoxazole 1 each 05/21/24 19:16 05/21/24 19:23 Sulfa/Trimethoprim 1 Tablet PO 05/21/24 19:17 1 each ONCE ONE Administration ORDERS Category Date Time Status Wound Culture and Gram Stain Routine Micro 05/21/24 19:50 Received Medical Decision Narrative: In summary patient is a 43-year-old female who presents to the emergency department for evaluation of left groin abscess. Patient is hemodynamically stable upon arrival, afebrile. Physical exam is remarkable for a area right in the intertriginous fold of the left upper thigh in her groin at the level of the vulva that is not in the vulva but more on the thigh. There is a central area of fluctuance with a mild amount of erythema surrounding it. Total area is approximately 2 x 2 cm. Differential diagnosis includes cellulitis versus abscess. Initial workup will be conducted with incision and drainage and wound culture. Initial interventions include incision and drainage Bactrim. Patient was anesthetized with 5 cc of lidocaine and incision was made with an 11 blade and upon entry approximately 3 to 5 cc of bloody purulence was released. Wound was packed with quarter inch iodoform gauze and dressed. Patient is appropriate for discharge with prescription for Bactrim with first dose given now. Patient to follow-up with PCP for recheck this week. I was consulted by the LINDEN, and we discussed the complexity of the problems being addressed. I approved the treatment and management plan for this patient's care in the Emergency Department, thus performing a substantive portion of the medical decision making. Karlos Villanueva MD Procedures <TRAY Stone - Last Filed: 05/21/24 22:49> Abscess I/D Site: lower extremity Side (if applicable): left Sedation/analgesia: other Local Anesthetic: lidocaine 1% Amount of anesthesia used (mL): 5 Technique: incised with #11 blade Amount of fluid expressed (mL): 4 Irrigation: No Packing used?: iodoform Critical Care <TRAY Stone - Last Filed: 05/21/24 22:49> Critical Care Time Critical Care Time: No
[2024-05-21 19:17] VITALS: BP 162/95; PULSE 92; RESP 20; TEMP 36.6; O2SAT 100; BMI 28.9
[2024-05-21] MEDS: SULFA/TRIMETHOPRIM 1 TABLET 1 EACH PO (19:23)
[2024-05-21] MEDS: LIDOCAINE 1% 10ML MDV 10 ML SQ (19:23)
[2024-05-21 19:58] VITALS: BP 124/83; PULSE 90; RESP 20; TEMP 36.6; O2SAT 99
== END 2024-05-21 20:04 | disposition home or self-care (01) ==
LOC: ER 19:20
PROVIDERS: Emergency Provider Emergency Medicine; PCP Internal Medicine Adolescent Medicine
DX: L02.91 Cutaneous abscess, unspecified (principal); R10.2 Pelvic and perineal pain
CPT/HCPCS: 10060; 87070; 87077; 87186; 87205; 99282

== ENCOUNTER 2024-11-15 20:55 | Observation (INO) | payer OTHER, SELFPAY ==
--- NOTE | 2024-11-15 21:24 | ECG_ITS ---
APPROVED REPORT Exam: Resting ECG HR:73 bpm ECG Measurements Heart Rate 73 AXES UT 137 P 75 QRSd 88 QRS 61 QT 376 T 53 QTc 401 Conclusion SINUS RHYTHM NORMAL ECG UNCONFIRMED REPORT Electronically signed by : OWEN GOLDSTEIN, 11/16/2024 06:24:42
[2024-11-15 21:30] VITALS: BP 132/82; PULSE 82; RESP 17; TEMP 36.8; O2SAT 97; BMI 28.3
[2024-11-15 21:38] VITALS: PULSE 82
[2024-11-15 22:00] VITALS: BP 123/82; PULSE 78; RESP 17; O2SAT 97
--- NOTE | 2024-11-15 22:00 | HMH.EDGENADL ---
Discharge Plan Disposition Patient Disposition: Admitted Chief Complaint: Chest Pain Prescriptions Prescriptions: No Action mupirocin 2 % ointment 1 applic topical BID Qty: 15 1RF Referrals Follow up/Referrals: Christiano Acosta MD [Primary Care Provider] - See instructions Clinical Impressions Clinical Impression: Acute cholecystitis Print Language Print Language: Spanish Discharge ED Provider: Karlos Villanueva General Adult HPI General Chief complaint: Chest Pain Stated complaint: Pain in ride side from front to back Time Seen by Provider: 11/15/24 21:21 Mode of Arrival: Ambulatory Source of Information: Patient Description of Symptoms (Recalled from ER Triage Doc. by RN): patient states yesterday she began having stabbing pain under her right breast that radiates to her right side of back and abdomen. today around 1900 she began having pressure substernal. she reports all of this gets worse with deep breaths and certain movements. she also has some shortness of breath History of Present Illness HPI narrative: Please note that above description of symptoms, in this electronic medical record under categorization of recalled from ER triage doctor by RN are reflective of an initial nursing assessment, however, is not reflective of my full history and physical exam that was personally taken and clarified. Consequentially, this preceding description of symptoms, which may include the patient's categorized chief complaint in the EMR, do not reflect my personal clinical impression, and the ultimate description of history of present illness and patient stated complaints should be deferred to this section of the note. Unless stated otherwise or congruent with this section of the note, additional signs, symptoms, or incongruence should be interpreted as inaccurate with my clinical impression. Related Data Previous Rx's ?Medication ?Instructions ?Recorded mupirocin 2 % topical ointment 1 applic topical BID #15 grams 05/31/24 Allergies Allergy/AdvReac Type Severity Reaction Status Date / Time No Known Allergies Allergy Verified 05/31/24 14:12 [facility] Disclaimer: The information contained in this section may have been updated after the patient was seen, as this information can be updated by other users. Medical History Open fracture of phalanx of right middle finger Acute viral syndrome Headache Strep throat Nontraumatic chest pain Contusion of right foot Contusion of left arm Strain of right hip Cervical strain Fall Laceration of thumb Pain in right axilla Sprain and strain of wrist Atypical chest pain UTI (urinary tract infection) Pyelonephritis Contusion of left lower leg, initial encounter Abrasion, left lower leg, initial encounter Laceration Viral upper respiratory illness Depression Anxiety Surgical History History of hysterectomy Family History Other No significant family history Social History Smoking Status: Current every day smoker tobacco type: cigarettes packs per day: 1 alcohol intake: never current occupational status: employed Travel in the last 8 weeks: None household members: spouse housing: house current occupational exposures/hazards: No caffeine: Yes Have you lived/traveled outside [place] in past 30 days?: No Contact w/someone who lives/traveled outside US past 30 days?: No Exposure to someone with infectious disease in past 14 days?: No Do you have a fever (greater than 100.4 F or 38 C)?: No Have you tested positive for COVID-19: No Exposed to someone with COVID-19 in past 14 days?: No Do you have a sore throat?: No Do you have a cough?: No Do you have any weakness?: No Do you have any diarrhea?: No Are you experiencing any unusual bleeding?: No Do you have any muscle aches/pain?: No Do you have any abdominal pain?: No Are you experiencing loss of taste or smell?: No Other Medical History Have you received the Flu Vaccine for this season: No Have you received the Pneumonia Vaccine: No ROS Obtained: Yes All systems reviewed & no additional complaints except as documented Physical Exam General General appearance: alert and anxious Head Head exam: atraumatic and normocephalic Eye Eye exam: Present normal appearance, PERRL and EOMI Neck Neck exam: Present normal inspection, full ROM and trachea midline Respiratory Respiratory exam: Present normal lung sounds bilaterally; Absent respiratory distress, wheezes, stridor, accessory muscle use or prolonged expiratory phase Cardiovascular Cardiovascular exam: Present regular rate, normal rhythm and other (Pulses equal symmetric in upper and lower extremities) Abdominal Exam Abdominal exam: Present soft and James's sign; Absent distention, tenderness or pulsatile mass Abdominal tenderness: Present RUQ and mild Extremities Exam Extremities exam: Absent edema Neurological Exam Neurological exam: Present alert, oriented X3 and CN II-XII intact; Absent motor sensory deficit Skin Skin exam: Present warm and dry; Absent diaphoresis or erythema Medical Decision Making Medical Records Medical records reviewed: Yes I reviewed the patient's medical records. Screening: Per USPSTF and CDC recommendations, given the prevalence of disease in our region, it is our hospital?s policy to screen for HIV and viral Hepatitis for all patients aged 18 and over and those with ongoing risk factors. Romie Inquiry Pt receiving controlled substance: No Romie was queried for this patient: No Vital Signs: 11/15/24 21:30 11/15/24 21:38 11/15/24 22:00 Temperature 98.2 F Temperature Source Oral Pulse Rate 82 78 Pulse Rate [Right] 82 Respiratory Rate 17 17 Blood Pressure 123/82 Blood Pressure [Right Arm] 132/82 Blood Pressure Mean [Right Arm] 98 Blood Pressure Source [Right Arm] Automatic Cuff Blood Pressure Position [Right Arm] Supine 02 Sat by Pulse Oximetry 97 97 Oxygen Delivery Method Room Air Room Air 11/15/24 22:30 Temperature Temperature Source Pulse Rate 80 Pulse Rate [Right] Respiratory Rate 16 Blood Pressure 109/57 L Blood Pressure [Right Arm] Blood Pressure Mean [Right Arm] Blood Pressure Source [Right Arm] Blood Pressure Position [Right Arm] 02 Sat by Pulse Oximetry 96 Oxygen Delivery Method Lab Data Lab Results 11/15/24 21:25: WBC 11.1 H, RBC 4.45, Hgb 14.0, Hct 40.3, MCV 90.6, MCH 31.5 H, MCHC 34.7, RDW 12.8, Plt Count 305, MPV 10.5 H, Neut % (Auto) 50.5, Lymph % (Auto) 37.7, Murray % (Auto) 8.9, Eos % (Auto) 2.0, Baso % (Auto) 0.7, Neut # (Auto) 5.6, Lymph # (Auto) 4.2, Murray # (Auto) 1.0, Eos # (Auto) 0.2, Baso # (Auto) 0.1, PT 9.6 L, INR 0.84 L, APTT 28.4, Sodium 139, Potassium 3.9, Chloride 106, Carbon Dioxide 23, Anion Gap 13.9, BUN 13, Creatinine 0.60, Estimated Creat Clear 147, Estimated GFR 109, Est GFR ( Amer) 132, Glucose 88, Calcium 9.1, Total Bilirubin 0.5, AST 27, ALT 26, Alkaline Phosphatase 69, Troponin I < 0.01, Total Protein 7.3, Albumin 4.2, Globulin 3.1, Albumin/Globulin Ratio 1.4, Lipase 49, HCG, Quant < 2 11/15/24 21:28: HCV Ab LANA w/Rflx PCR Qn Negative, HIV Ag/Ab Combo Qual Negative 11/15/24 21:25 11/15/24 21:25 Orders (Tests/Meds): ED MEDICATIONS Generic Name Dose Route Start Last Admin Trade Name Freq PRN Reason Stop Dose Admin Hydromorphone HCl 0.5 mg 11/15/24 22:59 Hydromorphone 2mg/Ml Syringe IV 11/15/24 23:00 ONCE ONE Ondansetron HCl 4 mg 11/15/24 22:59 Ondansetron 4mg/2ml Vial IV 11/15/24 23:00 ONCE ONE Discontinued Medications Generic Name Dose Route Start Last Admin Trade Name Freq PRN Reason Stop Dose Admin Acetaminophen 1,000 mg 11/15/24 21:55 11/15/24 22:02 Acetaminophen 500mg Tab PO 11/15/24 21:56 1,000 mg ONCE ONE Administration Ketorolac Tromethamine 15 mg 11/15/24 21:54 11/15/24 22:02 Ketorolac 30mg/Ml Vial IV 11/15/24 21:55 15 mg ONCE ONE Administration ORDERS Category Date Time Status POCUS Point of Care (ER Only) Stat Exams 11/15/24 21:54 Completed Complete Blood Count Auto Diff Stat Lab 11/15/24 21:25 Completed Comprehensive Metabolic Panel Stat Lab 11/15/24 21:25 Completed HCG,Quantitative Stat Lab 11/15/24 21:25 Completed HIV Combo Stat Lab 11/15/24 21:28 Completed Hepatitis C Ab Qual. W/ RFX Stat Lab 11/15/24 21:28 Completed INR [Prothrombin Time INR] Stat Lab 11/15/24 21:25 Completed Lipase Stat Lab 11/15/24 21:25 Completed PTT [Activated Partial Thrombo Time] Stat Lab 11/15/24 21:25 Completed Troponin I Q3H Lab 11/16/24 01:00 Ordered Troponin I Q3H Lab 11/16/24 04:00 Ordered Troponin I Stat Lab 11/15/24 21:25 Completed Urinalysis and Microscopic Stat Lab 11/15/24 21:54 Ordered Medical Decision Narrative: 43-year-old female presenting with abdominal pain. Has been going on and off waxing waning the last 2 days. Nothing particular makes it better or worse, does not seem to be associated food. No systemic signs or symptoms. States that it radiates from right upper quadrant across her abdomen and intermittently to her back. No vomiting, diarrhea, constipation, urinary symptoms. She did start taking Azo because she thought she was getting urinary tract infection. Has not taken anything for the pain. History was obtained via conversation with patient. On arrival, patient hemodynamically stable, alert, oriented x4, appropriate, GCS 15, moving all extremities spontaneously, pupils equal and reactive to light. Full physical exam performed and significant for anxious pending female no acute distress. Abdomen is soft, nondistended, but mildly tender in right upper quadrant with James sign positive. Cardiopulmonary exam within normal limits. Differential includes PUD, gastritis, enteritis, gastroenteritis, pancreatitis, SBO, colitis, diverticulitis, nephrolithiasis, UTI, , cholecystitis, choledocholithiasis, appendicitis, hepatitis, less likely ACS, PR, torsion, aortic pathology, mesenteric ischemia among others. Patient placed on continuous cardiac monitoring and continuous pulse ox with initial blood pressure 132/82, heart rate 82, saturation 97 on room air. Independent interpretation of EKG shows 73 bpm sinus rhythm DC interval 137, QRS 88, QTc 401. Normal axis, no acute ischemic change. Patient was given Toradol and acetaminophen for symptomatic management and correction of underlying abnormalities. Workup independently interpreted and significant for nonactionable hematologic labs or LFTs. Troponin negative. On independent interpretation of imaging, patient has acute cholecystitis on right upper quadrant ultrasound with thickened gallbladder wall 3 to 4 mm, positive sonographic James sign and 1.5 cm stone in the neck of the gallbladder. Common bile duct normal. Patient given Zofran and half milligram of Dilaudid. Interactive discussion had with hospital medicine to admit patient, graciously accepted. Given patient presentation, workup, history, this most likely represents acute cholecystitis without complication. Because patient high risk for clinical decompensation, deemed appropriate for inpatient admission. Results were relayed to patient who voiced understanding and patient was agreeable to inpatient admission and management. Patient was admitted to the hospital for further definitive management. Conservation Assistant disclaimer Much of this encounter note is an electronic game warden spoken language to printed text. Electronic game warden of the spoken language may permit errors. Although I have reviewed the note, some errors may still exist. Procedures Limited Ultrasound Indication:: Limited RUQ ultrasound Indication: Abdominal pain radiating to back Identified structures: -Gallbladder -Gallbladder wall -Common bile duct -Liver Findings: Sonographic James sign: Present Gallstones: Present 1.5 cm Sludge: Absent Pericholecystic fluid: Absent Maximal GB wall thickness (mm) (normal is </= 3mm): About 4 mm Common bile duct width (mm) (normal is </= 6mm): Normal Gallbladder width (cm) (normal is < 4cm): Normal Gallbladder length (cm) (normal is < 10cm): Normal Impression: Cholelithiasis with sonographic James sign and thickened gallbladder wall consistent with acute cholecystitis Images were saved to permanent archive The study was technically adequate CPT 17050-72 This study was performed by me, and I personally interpreted all images/videos. Based on my clinical judgement, these images were adequate and did not necessitate further imaging. Critical Care Critical Care Time Critical Care Time: No
[2024-11-15 22:02] LABS: Basophils # 0.1 K/mm3 (0-0.2); Basophils % 0.7 % (0.1-2.0); Eosinophils # 0.2 K/mm3 (0.0-0.4); Hematocrit 40.3 % (37.0-47.0); Lymphocytes # 4.2 K/mm3 (0.7-4.5); Lymphocytes % 37.7 % (10-50); Mean Corpuscular HGB Conc 34.7 g/dL (31.8-35.4); Mean Corpuscular Hemoglobin 31.5 pg (27.0-31.2); Mean Corpuscular Volume 90.6 fl (81-99); Mean Platelet Volume 10.5 fl (7.4-10.4); Monocytes % 8.9 % (1.7-9.3); Neutrophils # 5.6 K/mm3 (1.8-7.8); Neutrophils % 50.5 % (37.0-80.0); Nucleated Red Blood Cells # 0 10^3/uL; Nucleated Red Blood Cells % 0 %; Platelet Count 305 K/mm3 (142-424); Red Blood Count 4.45 M/mm3 (4.20-5.40); Red Cell Distribution Width 12.8 % (11.5-17.5); Red Cell Distribution Width-SD 42.5 fL; White Blood Count 11.1 K/mm3 (4.8-10.8)
[2024-11-15] MEDS: ACETAMINOPHEN 500MG TAB 1000 MG PO (22:02)
[2024-11-15] MEDS: KETOROLAC 30MG/ML VIAL 15 MG IV (22:02)
[2024-11-15 22:07] LABS: Alanine Aminotransferase 26 U/L (12-78); Albumin Level 4.2 g/dl (3.5-5.0); Albumin/Globulin Ratio 1.4 (1.1-1.8); Alkaline Phosphatase 69 U/L (38-126); Aspartate Amino Transferase 27 U/L (14-36); Bilirubin,Total 0.5 mg/dl (0.2-1.3); Blood Urea Nitrogen 13 mg/dl (7-17); Carbon Dioxide 23 mmol/L (22.0-30.0); Chloride 106 mmol/L (98-107); Creatinine Clearance Estimated 147 mL/min (50-200); Estimated Glomerular Filt Rate 109 ml/min (>60); GFR (African American) 132 ML/MIN (>60); Globulin 3.1 g/dL (1.3-3.2); Sodium 139 mmol/L (136-145); Total Protein,Serum 7.3 g/dl (6.3-8.2)
[2024-11-15 22:10] LABS: Activated Partial Thrombo Time 28.4 seconds (22.8-30.6)
[2024-11-15 22:19] LABS: INR 0.84 (0.9-1.1); Prothrombin Time 9.6 seconds (10.1-12.5)
[2024-11-15 22:20] LABS: Troponin I < 0.01 ng/ml (0.00-0.034)
[2024-11-15 22:25] LABS: HCG,Quantitative < 2 mIU/ml (0-5.42)
[2024-11-15 22:28] LABS: Calcium 9.1 mg/dl (8.4-10.2); Glucose 88 mg/dl (74-100)
[2024-11-15 22:30] VITALS: BP 109/57; PULSE 80; RESP 16; O2SAT 96
[2024-11-15 22:45] LABS: Anion Gap 13.9 mEq/L (5-15); Potassium 3.9 mmoL/L (3.5-5.1)
[2024-11-15 22:46] LABS: HIV Combo NEGATIVE (Negative)
[2024-11-15 22:48] LABS: Lipase 49 U/L (23-300)
[2024-11-15 22:54] LABS: Hepatitis C Ab Qual. W/ RFX NEGATIVE (Negative)
[2024-11-15] MEDS: ONDANSETRON 4MG/2ML VIAL 4 MG IV (23:04)
[2024-11-15 23:05] VITALS: BP 107/69; PULSE 78; RESP 15; TEMP 36.7; O2SAT 96
[2024-11-15] MEDS: HYDROMORPHONE 2MG/ML SYRINGE 0.5 MG IV (23:05)
[2024-11-15 23:13] LABS: Microscopic, Urine URINE MICROSCOPIC (MICROSCOPIC)
[2024-11-15 23:16] LABS: Appearance,Urine CLEAR (Clear); Bilirubin,Urine Negative (Negative); Blood, Urine Negative (Negative); Color,Urine YELLOW (Yellow); Glucose,Urine (UA) Negative (Negative); Ketones,Urine Negative (Negative); Leukocyte Esterase,Urine Negative (Negative); Nitrate,Urine Negative (Negative); Protein,Urine Negative (Negative); Urobilinogen,Urine 0.2 EU/dl (0.2)
[2024-11-15 23:19] VITALS: BP 122/64; PULSE 80; RESP 16; TEMP 37.2; O2SAT 99
--- NOTE | 2024-11-15 23:21 | P.HP_ITS ---
<Statement entered by Roman Stein MD - 11/18/24 14:07> I personally examined the patient and agree with the plan of care as outlined by the GEOGRAPHIC INFORMATION SYSTEM SURVEYOR. History of Present Illness *Admission Date: 11/15/24 *Reason for visit:: Chest pain *History of present illness: This is a 43-year-old female who has a past medical history significant for anxiety, depression, cervical strain, and sinusitis who presents with a chief complaint of stabbing right upper quadrant pain in the abdomen that radiates to the back. Due to patient's symptoms, she presented to the emergency room for evaluation. Patient's EKG and troponin were nonrevealing. Bedside ultrasound of the gallbladder performed by the ER provider revealed a gallstone with thickening of the gallbladder. Due to these findings, patient has been admitted for further management. During my evaluation of the patient, patient states that she has been experiencing pain for 1 day. She reports that her pain initially started in her right upper quadrant that radiated to her back rated 7 out of 10. Over period of time, patient's pain became diffuse. She does have a positive James sign. She also mentions that her pain is worse with inspiration. Currently, she has a EKG that shows sinus rhythm, QTc of 401, normal axis without any deviation and ST segment. She reports her chest pain/chest pressure as sternal and describes a plain as pressure. She is currently denying any lightheadedness, fever, chills, rigors, bilious emesis, nausea, vomiting, shortness of breath, dyspnea, PND, or diarrhea. Additional pertinent vitals obtained include white blood cell count 11.1. [facility] Disclaimer: The information contained in this section may have been updated after the patient was seen, as this information can be updated by other users. Medical History Open fracture of phalanx of right middle finger Acute viral syndrome Headache Strep throat Nontraumatic chest pain Contusion of right foot Contusion of left arm Strain of right hip Cervical strain Fall Laceration of thumb Pain in right axilla Sprain and strain of wrist Atypical chest pain UTI (urinary tract infection) Pyelonephritis Contusion of left lower leg, initial encounter Abrasion, left lower leg, initial encounter Laceration Viral upper respiratory illness Depression Anxiety Surgical History History of hysterectomy Family History Other No significant family history Social History Smoking Status: Current every day smoker tobacco type: cigarettes packs per day: 1 alcohol intake: never current occupational status: employed Travel in the last 8 weeks: None household members: spouse housing: house current occupational exposures/hazards: No caffeine: Yes Have you lived/traveled outside US in past 30 days?: No Contact w/someone who lives/traveled outside US past 30 days?: No Exposure to someone with infectious disease in past 14 days?: No Do you have a fever (greater than 100.4 F or 38 C)?: No Have you tested positive for COVID-19: No Exposed to someone with COVID-19 in past 14 days?: No Do you have a sore throat?: No Do you have a cough?: No Do you have any weakness?: No Do you have any diarrhea?: No Are you experiencing any unusual bleeding?: No Do you have any muscle aches/pain?: No Do you have any abdominal pain?: No Are you experiencing loss of taste or smell?: No Other Medical History Have you received the Flu Vaccine for this season: No Have you received the Pneumonia Vaccine: No Review of Systems Review of Systems Review of systems:: pertinent systems reviewed and negative unless documented below Constitutional Constitutional: Reports system reviewed and no additional complaints, except as documented Eyes Eyes: Reports system reviewed and no additional complaints, except as documented ENT Ears, Nose, Mouth, and Throat: Reports system reviewed and no additional complaints, except as documented *Cardiovascular Cardiovascular: Reports chest pain *Respiratory Respiratory: Reports system reviewed and no additional complaints, except as documented *Gastrointestinal Gastrointestinal: Reports abdominal pain *Genitourinary Genitourinary: Reports system reviewed and no additional complaints, except as documented *Musculoskeletal Musculoskeletal: Reports system reviewed and no additional complaints, except as documented Integumentary/Breasts Skin/Breast: Reports system reviewed and no additional complaints, except as documented *Neurologic Neurologic: Reports system reviewed and no additional complaints, except as documented Psychiatric Psychiatric: Reports system reviewed and no additional complaints, except as documented Endocrine Endocrine: Reports system reviewed and no additional complaints, except as documented Hematologic/Lymphatic Hematologic/Lymphatic: Reports system reviewed and no additional complaints, except as documented Allergic/Immunologic Allergic/Immunologic: Reports system reviewed and no additional complaints, except as documented Meds Home Medications and Allergies Home Medications ?Medication ?Instructions ?Recorded ?Confirmed ?Type mupirocin 2 % topical ointment 1 applic topical BID #15 grams 05/31/24 05/31/24 Rx New Prescriptions to Start Prescriptions: Allergies Allergy/AdvReac Type Severity Reaction Status Date / Time No Known Allergies Allergy Verified 05/31/24 14:12 Exam Data for Last 24 hours Vital signs and Labs for Last 24 Hours: Temp Pulse Resp BP Pulse Ox O2 Del Method 98.9 F 80 16 122/64 96 Room Air 11/15/24 23:19 11/15/24 23:19 11/15/24 23:19 11/15/24 23:19 11/15/24 22:30 11/15/24 23:19 Laboratory Results - last 24 hr 11/15/24 21:25: WBC 11.1 H, RBC 4.45, Hgb 14.0, Hct 40.3, MCV 90.6, MCH 31.5 H, MCHC 34.7, RDW 12.8, Plt Count 305, MPV 10.5 H, Neut % (Auto) 50.5, Lymph % (Auto) 37.7, [place] % (Auto) 8.9, Eos % (Auto) 2.0, Baso % (Auto) 0.7, Neut # (Auto) 5.6, Lymph # (Auto) 4.2, [place] # (Auto) 1.0, Eos # (Auto) 0.2, Baso # (Auto) 0.1, PT 9.6 L, INR 0.84 L, APTT 28.4, Sodium 139, Potassium 3.9, Chloride 106, Carbon Dioxide 23, Anion Gap 13.9, BUN 13, Creatinine 0.60, Estimated Creat Clear 147, Estimated GFR 109, Est GFR ( Amer) 132, Glucose 88, Calcium 9.1, Total Bilirubin 0.5, AST 27, ALT 26, Alkaline Phosphatase 69, Troponin I < 0.01, Total Protein 7.3, Albumin 4.2, Globulin 3.1, Albumin/Globulin Ratio 1.4, Lipase 49, HCG, Quant < 2 11/15/24 21:28: HCV Ab LANA w/Rflx PCR Qn Negative, HIV Ag/Ab Combo Qual Negative 11/15/24 23:08: Urine Color Yellow, Urine Appearance Clear, Urine pH 7.0, Ur Specific [place] 1.010, Urine Protein Negative, Urine Glucose (UA) Negative, Urine Ketones Negative, Urine Blood Negative, Urine Nitrate Negative, Urine Bilirubin Negative, Urine Urobilinogen 0.2, Ur Leukocyte Esterase Negative I & O for Last 24 hours: Intake & Output 11/12/24 11/13/24 11/14/24 11/15/24 23:59 23:59 23:59 23:59 Weight 77.111 kg Constitutional Constitutional: no acute distress *Routine HEENT Exam Head: Present normocephalic and atraumatic Eye: Present EOMI, PERRL and normal accommodation ENT: Present mucous membranes moist *Routine Neck Exam Neck: Present supple, full ROM and trachea midline *Routine Respiratory Exam Respiratory: Present CTA bilaterally, able to speak in complete sentences and symmetric chest movement *Routine Cardiovascular Exam Cardiovascular: Present RRR, Normal S1 and Normal S2 *Routine Abdominal Exam Abdominal: Present soft and normoactive bowel sounds *Routine Rectal Exam Rectal:: deferred *Routine Genitalia Exam Genitalia:: deferred *Routine Extremities Exam Extremities: Present full ROM, pulses intact and normal capillary refill Routine Back/Spine/Pelvis Exam Back/Spine: Present full ROM *Routine Skin Exam Skin: Present intact, warm and normal turgor *Routine Neurological Exam Neurological: Present alert, oriented X3, CN II-XII intact, moving all extremities and normal speech Routine Psychiatric Exam Psychiatric: Present normal affect, normal thought process, cooperative, good insight and good judgment H&P: Result Impressions 43-year-old female with significant cardiac history presents with atypical chest pain most likely due to acute cholecystitis. Thus far EKG and troponin are nonrevealing. Patient does have some cholelithiasis seen on [id number]. Assessment and Plan *Assessment and plan (1) Acute cholecystitis: Status: Acute Category: Medical Code(s): K81.0 - Acute cholecystitis (2) Leukocytosis: Status: Acute Qualifiers: Leukocytosis type: unspecified Qualified Code(s): D72.829 - Elevated white blood cell count, unspecified Category: Medical Code(s): D72.829 - Elevated white blood cell count, unspecified (3) Chest pain: Status: Acute Qualifiers: Chest pain type: unspecified Qualified Code(s): R07.9 - Chest pain, unspecified Category: Medical Code(s): R07.9 - Chest pain, unspecified Plan Assessment: Acute cholecystitis -Will consult general surgery in the morning -With 3.75 g of Zosyn IV every 6 hours -Will make patient n.p.o. after midnight Leukocytosis -3.375 g of Zosyn IV every 6 hours Atypical chest pain -Most likely in setting of gallbladder disease -Will continue to trend troponin Plan: Admit patient to [facility] on telemetry Activity as tolerated Regular diet for now and then n.p.o. after midnight CBC/BMP daily 40 mg Lovenox subcu daily for DVT prophylax 2 mg morphine IV push every 4 hours Gloria rib pain 21 mg nicotine patch daily 4 mg Zofran IV push to 8 hours Full code I will discuss this case with attending physician Dr. Stein and a look forward to more input
[2024-11-15 23:37] LABS: Bacteria,Urine 3+ /lpf
[2024-11-15] MEDS: PIPERACILLIN/TAZO 3.375 GM in 0.9 % SODIUM CHLORIDE 50 ML IV (23:42)
[2024-11-15] MEDS: 0.9 % SODIUM CHLORIDE 1000ML 1,000 ML 75 ML IV (23:42)
[2024-11-16] VITALS (18 sets, daily range): BP systolic 87–146; BP diastolic 44–85; PULSE 64–87; RESP 14–20; TEMP 36.3–36.9; O2SAT 91–96; BMI 31.1
[2024-11-16] MEDS: NICOTINE 21MG/24HR PATCH 21 MG TD (00:42)
[2024-11-16] MEDS: HYDROCODONE/APAP 5/325 MG TABLET 1 TAB PO ×3 (01:27→17:08)
[2024-11-16 01:35] LABS: Troponin I < 0.01 ng/ml (0.00-0.034)
[2024-11-16 04:39] LABS: Basophils # 0.1 K/mm3 (0-0.2); Basophils % 0.9 % (0.1-2.0); Eosinophils # 0.3 K/mm3 (0.0-0.4); Eosinophils % 2.5 % (0.1-12.0); Hematocrit 39.3 % (37.0-47.0); Hemoglobin 13.3 g/dL (12.2-16.2); Lymphocytes # 4.6 K/mm3 (0.7-4.5); Lymphocytes % 45.8 % (10-50); Mean Corpuscular HGB Conc 33.8 g/dL (31.8-35.4); Mean Corpuscular Hemoglobin 31.2 pg (27.0-31.2); Mean Corpuscular Volume 92.3 fl (81-99); Mean Platelet Volume 10.4 fl (7.4-10.4); Monocytes # 0.7 K/mm3 (0.1-1.0); Monocytes % 7.3 % (1.7-9.3); Neutrophils # 4.3 K/mm3 (1.8-7.8); Neutrophils % 43.2 % (37.0-80.0); Nucleated Red Blood Cells # 0 10^3/uL; Nucleated Red Blood Cells % 0 %; Platelet Count 281 K/mm3 (142-424); Red Blood Count 4.26 M/mm3 (4.20-5.40); Red Cell Distribution Width 13.2 % (11.5-17.5); Red Cell Distribution Width-SD 44.8 fL
[2024-11-16 04:52] LABS: Alanine Aminotransferase 22 U/L (12-78); Albumin Level 3.6 g/dl (3.5-5.0); Albumin/Globulin Ratio 1.2 (1.1-1.8); Alkaline Phosphatase 65 U/L (38-126); Anion Gap 11.3 mEq/L (5-15); Aspartate Amino Transferase 26 U/L (14-36); Bilirubin,Total 0.6 mg/dl (0.2-1.3); Blood Urea Nitrogen 14 mg/dl (7-17); Calcium 8.5 mg/dl (8.4-10.2); Carbon Dioxide 23 mmol/L (22.0-30.0); Chloride 110 mmol/L (98-107); Creatinine Clearance Estimated 138 mL/min (50-200); Estimated Glomerular Filt Rate 91 ml/min (>60); GFR (African American) 111 ML/MIN (>60); Globulin 2.9 g/dL (1.3-3.2); Glucose 98 mg/dl (74-100); Potassium 4.3 mmoL/L (3.5-5.1); Sodium 140 mmol/L (136-145); Total Protein,Serum 6.5 g/dl (6.3-8.2)
[2024-11-16 05:04] LABS: Troponin I < 0.01 ng/ml (0.00-0.034)
--- NOTE | 2024-11-16 06:02 | PC.NURSE ---
Pt has rested well this shift, however has c/o mild to moderate abdominal and back pain. Pt denies nausea since admission to unit. Pt has had no other acute changes to note this shift.
[2024-11-16] MEDS: PIPERACILLIN/TAZO 3.375 GM in 0.9 % SODIUM CHLORIDE 50 ML IV ×2 (06:14→14:29)
[2024-11-16] MEDS: MORPHINE 2MG/ML SYRINGE 2 MG IV ×2 (06:17→14:15)
--- NOTE | 2024-11-16 08:36 | P.CONS_ITS ---
History of Present Illness *Admission Date: 11/15/24 *Reason for visit:: Possible acute cholecystitis *History of present illness: Patient is a 43-year-old female who presented to the emergency department in the evening of 11/15/2024. She had a couple day history of pain in the right subcostal area with no alleviating or exacerbating factors. She has had some right upper quadrant pain with radiation into the back. She had tried treatment at home for possible urinary tract infection. She presented to the emergency department in the evening . Underwent evaluation. Laboratory assessment unremarkable. Limited [id number] ultrasound revealed findings consistent with cholecystitis with a gallstone. Due to the sonographic findings and findings consistent with clinical cholecystitis she was admitted for inpatient management. Surgical consultation was ordered this morning. She continues to have quite significant pain. Pain is most significant in the right upper quadrant with diffuse radiation. [facility] Disclaimer: The information contained in this section may have been updated after the patient was seen, as this information can be updated by other users. Medical History Open fracture of phalanx of right middle finger Acute viral syndrome Headache Strep throat Nontraumatic chest pain Contusion of right foot Contusion of left arm Strain of right hip Cervical strain Fall Laceration of thumb Pain in right axilla Sprain and strain of wrist Atypical chest pain UTI (urinary tract infection) Pyelonephritis Contusion of left lower leg, initial encounter Abrasion, left lower leg, initial encounter Laceration Viral upper respiratory illness Depression Anxiety Surgical History History of hysterectomy Family History Other No significant family history Social History (Updated 11/15/24 @ 23:57 by Dolores Gonzalez RN) Smoking Status: Current every day smoker tobacco type: cigarettes packs per day: 1 alcohol intake: never current occupational status: employed Travel in the last 8 weeks: None household members: spouse housing: house current occupational exposures/hazards: No caffeine: Yes Have you lived/traveled outside [place] in past 30 days?: No Contact w/someone who lives/traveled outside [place] past 30 days?: No Exposure to someone with infectious disease in past 14 days?: No Do you have a fever (greater than 100.4 F or 38 C)?: No Have you tested positive for COVID-19: No Exposed to someone with COVID-19 in past 14 days?: No Do you have a sore throat?: No Do you have a cough?: No Do you have any weakness?: No Do you have any diarrhea?: No Are you experiencing any unusual bleeding?: No Do you have any muscle aches/pain?: No Do you have any abdominal pain?: No Are you experiencing loss of taste or smell?: No Review of Systems *Neurologic Neurologic: Reports system reviewed and no additional complaints, except as documented Meds Home Medications and Allergies Home Medications ?Medication ?Instructions ?Recorded ?Confirmed ?Type melatonin 10 mg tablet 10 mg PO HSP PRN Sleep 11/15/24 11/16/24 History New Prescriptions to Start Prescriptions: Allergies Allergy/AdvReac Type Severity Reaction Status Date / Time No Known Allergies Allergy Verified 05/31/24 14:12 Exam (Inpt) Vital signs and Labs for Last 24 Hours: Temp Pulse Resp BP Pulse Ox O2 Del Method 98 F 64 18 108/64 L 95 Room Air 11/16/24 08:00 11/16/24 08:00 11/16/24 08:00 11/16/24 08:00 11/16/24 08:00 11/16/24 08:00 Laboratory Results - last 24 hr 11/15/24 21:25: WBC 11.1 H, RBC 4.45, Hgb 14.0, Hct 40.3, MCV 90.6, MCH 31.5 H, MCHC 34.7, RDW 12.8, Plt Count 305, MPV 10.5 H, Neut % (Auto) 50.5, Lymph % (Auto) 37.7, [place] % (Auto) 8.9, Eos % (Auto) 2.0, Baso % (Auto) 0.7, Neut # (Auto) 5.6, Lymph # (Auto) 4.2, [place] # (Auto) 1.0, Eos # (Auto) 0.2, Baso # (Auto) 0.1, PT 9.6 L, INR 0.84 L, APTT 28.4, Sodium 139, Potassium 3.9, Chloride 106, Carbon Dioxide 23, Anion Gap 13.9, BUN 13, Creatinine 0.60, Estimated Creat Clear 147, Estimated GFR 109, Est GFR ( Amer) 132, Glucose 88, Calcium 9.1, Total Bilirubin 0.5, AST 27, ALT 26, Alkaline Phosphatase 69, Troponin I < 0.01, Total Protein 7.3, Albumin 4.2, Globulin 3.1, Albumin/Globulin Ratio 1.4, Lipase 49, HCG, Quant < 2 11/15/24 21:28: HCV Ab LANA w/Rflx PCR Qn Negative, HIV Ag/Ab Combo Qual Negative 11/15/24 23:08: Urine Color Yellow, Urine Appearance Clear, Urine pH 7.0, Ur Specific [place] 1.010, Urine Protein Negative, Urine Glucose (UA) Negative, Urine Ketones Negative, Urine Blood Negative, Urine Nitrate Negative, Urine Bilirubin Negative, Urine Urobilinogen 0.2, Ur Leukocyte Esterase Negative, Urine RBC 3-5, Urine WBC 5-10, Ur Squamous Epith Cells 10-20, Urine Bacteria 3+ 11/16/24 01:05: Troponin I < 0.01 11/16/24 04:25: WBC 10.0, RBC 4.26, Hgb 13.3, Hct 39.3, MCV 92.3, MCH 31.2, MCHC 33.8, RDW 13.2, Plt Count 281, MPV 10.4, Neut % (Auto) 43.2, Lymph % (Auto) 45.8, [place] % (Auto) 7.3, Eos % (Auto) 2.5, Baso % (Auto) 0.9, Neut # (Auto) 4.3, Lymph # (Auto) 4.6 H, [place] # (Auto) 0.7, Eos # (Auto) 0.3, Baso # (Auto) 0.1, Sodium 140, Potassium 4.3, Chloride 110 H, Carbon Dioxide 23, Anion Gap 11.3, BUN 14, Creatinine 0.70, Estimated Creat Clear 138, Estimated GFR 91, Est GFR ( Amer) 111, Glucose 98, Calcium 8.5, Total Bilirubin 0.6, AST 26, ALT 22, Alkaline Phosphatase 65, Troponin I < 0.01, Total Protein 6.5, Albumin 3.6 D, Globulin 2.9, Albumin/Globulin Ratio 1.2 I & O for Labs for Last 24 Hours: Intake & Output 11/13/24 11/14/24 11/15/24 11/16/24 11:59 11:59 11:59 11:59 Intake Total 120 / 120 Output Total 0 / 0 Balance 120 / 120 Weight 186 lb 9.6 oz Constitutional: no acute distress Head: Present normocephalic Cardiac: Present Reg Rate and Rhythm GI: Present soft Comments:: Tender in the right lower quadrant and epigastrium with significant tenderness with voluntary guarding in the right upper quadrant. Results Labs 11/16/24 04:25 11/16/24 04:25 Labs: Laboratory Results - last 24 hr 11/15/24 21:25: WBC 11.1 H, RBC 4.45, Hgb 14.0, Hct 40.3, MCV 90.6, MCH 31.5 H, MCHC 34.7, RDW 12.8, Plt Count 305, MPV 10.5 H, Neut % (Auto) 50.5, Lymph % (Auto) 37.7, [place] % (Auto) 8.9, Eos % (Auto) 2.0, Baso % (Auto) 0.7, Neut # (Auto) 5.6, Lymph # (Auto) 4.2, [place] # (Auto) 1.0, Eos # (Auto) 0.2, Baso # (Auto) 0.1, PT 9.6 L, INR 0.84 L, APTT 28.4, Sodium 139, Potassium 3.9, Chloride 106, Carbon Dioxide 23, Anion Gap 13.9, BUN 13, Creatinine 0.60, Estimated Creat Clear 147, Estimated GFR 109, Est GFR ( Amer) 132, Glucose 88, Calcium 9.1, Total Bilirubin 0.5, AST 27, ALT 26, Alkaline Phosphatase 69, Troponin I < 0.01, Total Protein 7.3, Albumin 4.2, Globulin 3.1, Albumin/Globulin Ratio 1.4, Lipase 49, HCG, Quant < 2 11/15/24 21:28: HCV Ab LANA w/Rflx PCR Qn Negative, HIV Ag/Ab Combo Qual Negative 11/15/24 23:08: Urine Color Yellow, Urine Appearance Clear, Urine pH 7.0, Ur Specific [place] 1.010, Urine Protein Negative, Urine Glucose (UA) Negative, Urine Ketones Negative, Urine Blood Negative, Urine Nitrate Negative, Urine Bilirubin Negative, Urine Urobilinogen 0.2, Ur Leukocyte Esterase Negative, Urine RBC 3-5, Urine WBC 5-10, Ur Squamous Epith Cells 10-20, Urine Bacteria 3+ 11/16/24 01:05: Troponin I < 0.01 11/16/24 04:25: WBC 10.0, RBC 4.26, Hgb 13.3, Hct 39.3, MCV 92.3, MCH 31.2, MCHC 33.8, RDW 13.2, Plt Count 281, MPV 10.4, Neut % (Auto) 43.2, Lymph % (Auto) 45.8, [place] % (Auto) 7.3, Eos % (Auto) 2.5, Baso % (Auto) 0.9, Neut # (Auto) 4.3, Lymph # (Auto) 4.6 H, [place] # (Auto) 0.7, Eos # (Auto) 0.3, Baso # (Auto) 0.1, Sodium 140, Potassium 4.3, Chloride 110 H, Carbon Dioxide 23, Anion Gap 11.3, BUN 14, Creatinine 0.70, Estimated Creat Clear 138, Estimated GFR 91, Est GFR ( Amer) 111, Glucose 98, Calcium 8.5, Total Bilirubin 0.6, AST 26, ALT 22, Alkaline Phosphatase 65, Troponin I < 0.01, Total Protein 6.5, Albumin 3.6 D, Globulin 2.9, Albumin/Globulin Ratio 1.2 Assessment and Plan *Assessment and plan (1) Acute cholecystitis: Status: Acute Category: Medical Code(s): K81.0 - Acute cholecystitis Plan Patient has findings consistent with ongoing acute cholecystitis. Plan for dedicated gallbladder ultrasound. Tentatively plan for cholecystectomy. Patient does wish to pursue surgery due to the significance of her ongoing symptoms. I explained to her the nature and details of the proposed procedure along with associated risks and expected outcome. She understands and agrees to proceed. Plan for laparoscopic possibly open cholecystectomy.
--- NOTE | 2024-11-16 08:40 | US_ITS ---
FINAL REPORT TECHNIQUE: Multiple transverse and longitudinal images CLINICAL HISTORY: RUQ pain COMPARISON: None FINDINGS: There is a stone in the proximal gallbladder, measuring up to 16 mm in size. No gallbladder wall thickening is identified. No biliary ductal dilatation is appreciated. No fluid collections are seen. There is mild fatty infiltration of the liver. Limited portions of the right kidney are unremarkable. IMPRESSION: 1. 16 mm stone in the proximal gallbladder. 2. No evidence of biliary obstruction 3. Mild fatty infiltration of the liver. Reviewed, Interpreted and Dictated by Ty Adams MD Transcribed by Beatris Valdovinos Authenticated and [facility]
[2024-11-16] MEDS: ENOXAPARIN 40MG/0.4ML SYRINGE 40 MG SUBCUT (08:55)
[2024-11-16] MEDS: CEFAZOLIN 1GM VIAL 2 GM (12:05)
[2024-11-16] MEDS: ROPIVACAINE 0.5% 30ML VIAL 150 MG (12:27)
[2024-11-16] MEDS: LIDOCAINE 1% 20ML MDV 20 ML (12:28)
--- NOTE | 2024-11-16 13:15 | P.OP_ITS ---
Date of procedure: 11/16/24 Pre-op Diagnosis:: Cholecystitis Post-op Diagnosis:: Same Procedure performed:: Laparoscopic cholecystectomy Surgeon:: Myke Lozoya MD FINANCIAL SALES ASSOCIATE:: Dudley Mckee Anesthesia: GETDennis Estimated blood loss (mL): 20 Clinical Note:: Patient is a 43-year-old female who presented to the emergency department in the evening of 11/15/2024. She had a couple day history of pain in the right subcostal area with no alleviating or exacerbating factors. She has had some right upper quadrant pain with radiation into the back. She had tried treatment at home for possible urinary tract infection. She presented to the emergency department in the evening of. Underwent evaluation. Laboratory assessment unremarkable. Limited [id number] ultrasound revealed findings consistent with cholecystitis with a gallstone. Due to the sonographic findings and findings consistent with clinical cholecystitis she was admitted for inpatient management. Surgical consultation was ordered this morning. She continues to have quite significant pain. Pain is most significant in the right upper quadrant with diffuse radiation. She underwent a gallbladder ultrasound which revealed stone in the neck of the gallbladder. She continued to have symptoms consistent with clinical cholecystitis. Plan was made to proceed with cholecystectomy. Operative findings:: She had a distended edematous somewhat tense gallbladder with stone in the neck of the gallbladder. Operative note:: Consent was obtained patient was taken the operating room. She was positioned in supine position. General anesthesia was induced via endotracheal tube. Abdomen was prepped and draped in the standard surgical fashion. Subumbilical skin incision was made in previous laparoscopy scar. Dissection was carried down of the fascia. While performing abdominal wall lift Veress needle was inserted. CO2 pneumoperitoneum was achieved to 15 mmHg. 11 mm optical trocar was inserted at the umbilicus. She was positioned in reverse Trendelenburg and left side down. A couple 5 mm trocars were inserted in the right upper abdomen. 10 mm trocar was inserted in the epigastrium. Gallbladder was identified and retracted anteriorly and superiorly over the dome of the liver. Gallbladder was distended and somewhat edematous. There were a few omental adhesions to the neck of the gallbladder. There was noted to be a moderate stone impacted in the neck of the gallbladder. This was able to be milked back into the body of the gallbladder. Infundibulum/Trevino's pouch of the gallbladder is retracted anterior laterally. Blunt dissection was carried out the neck of the gallbladder bluntly incising the visceral peritoneum and taking down the omental adhesions. Prolonged careful dissection was carried out identifying the cystic duct and cystic artery and the critical view of safety. Cystic duct was isolated, multiply clipped, and sharply divided. The cystic artery was carefu lly coagulated with EL ultrasonic harmonic sara and divided. Gallbladder was dissected free from the liver in a retrograde fashion using EL ultrasonic harmonic sara. Gallbladder was placed within an Endo Catch retrieval device and removed from the peritoneal cavity via the umbilical trocar site which required some minimal extension of the fascial incision for delivery. Gallbladder fossa was inspected for hemostasis which was assured. Limited irrigation was performed. Trocars were removed as CO2 pneumoperitoneum was evacuated. Fascia at the umbilicus was closed with a couple 0 Vicryl sutures. Local anesthetic was infiltrated. Skin incision was closed with 4-0 Monocryl in a subcuticular fashion. Steri-Strips and dressings were applied. Condition: stable Disposition: PACU Complications:: None immediately apparent
--- NOTE | 2024-11-16 13:33 | EXP.ANES.I ---
[facility] Anesthesia Record Part I Anesthesia Record I Intake, IV Amount: 850 Hydration: Adequate Estimated blood loss (mL): 20 Urine output (mL): 0 Blood Products used (#): none Blood Pressure: 108/62 SaO2: 93 Pulse Rate: 87 Airway Patency: Patent Respiratory Rate: 14 Temperature: 97.7 F Patient is:: Drowsy and Stable Stable to PACU at:: 13:20
--- NOTE | 2024-11-16 16:28 | EXP.DC.SUM ---
General Admission date:: 11/15/24 HPI HPI HPI: Patient is a 43-year-old female who presented to the emergency department in the evening of 11/15/2024. She had a couple day history of pain in the right subcostal area with no alleviating or exacerbating factors. She has had some right upper quadrant pain with radiation into the back. She had tried treatment at home for possible urinary tract infection. She presented to the emergency department in the evening . Underwent evaluation. Laboratory assessment unremarkable. Limited mufqd-mo-chma ultrasound revealed findings consistent with cholecystitis with a gallstone. Due to the sonographic findings and findings consistent with clinical cholecystitis she was admitted for inpatient management. Surgical consultation was ordered this morning. She continues to have quite significant pain. Pain is most significant in the right upper quadrant with diffuse radiation. Hospital Course Hospital Course Hospital Course: Rosalee Dodge is a 43-year-old female who presented with abdominal pain and was admitted for acute cholecystitis. #Acute cholecystitis ? General Surgery consulted, s/p laparoscopic cholecystectomy on 11/16/2024. Patient tolerated procedure well. ? Tolerating p.o. intake without nausea/vomiting. ? Treated with IV Zosyn, surgery did not recommend further antibiotics. ? Discharged with Lynn, patient will follow-up with general surgery within 2 weeks. Exam Data for Last 24 hours Vital signs and Labs for Last 24 Hours: Temp Pulse Resp BP Pulse Ox O2 Del Method 98.2 F 71 18 146/85 H 93 L Room Air 11/16/24 14:30 11/16/24 14:30 11/16/24 14:30 11/16/24 14:30 11/16/24 14:30 11/16/24 14:30 Laboratory Results - last 24 hr 11/15/24 21:25: WBC 11.1 H, RBC 4.45, Hgb 14.0, Hct 40.3, MCV 90.6, MCH 31.5 H, MCHC 34.7, RDW 12.8, Plt Count 305, MPV 10.5 H, Neut % (Auto) 50.5, Lymph % (Auto) 37.7, Pickett % (Auto) 8.9, Eos % (Auto) 2.0, Baso % (Auto) 0.7, Neut # (Auto) 5.6, Lymph # (Auto) 4.2, Pickett # (Auto) 1.0, Eos # (Auto) 0.2, Baso # (Auto) 0.1, PT 9.6 L, INR 0.84 L, APTT 28.4, Sodium 139, Potassium 3.9, Chloride 106, Carbon Dioxide 23, Anion Gap 13.9, BUN 13, Creatinine 0.60, Estimated Creat Clear 147, Estimated GFR 109, Est GFR ( Amer) 132, Glucose 88, Calcium 9.1, Total Bilirubin 0.5, AST 27, ALT 26, Alkaline Phosphatase 69, Troponin I < 0.01, Total Protein 7.3, Albumin 4.2, Globulin 3.1, Albumin/Globulin Ratio 1.4, Lipase 49, HCG, Quant < 2 11/15/24 21:28: HCV Ab LANA w/Rflx PCR Qn Negative, HIV Ag/Ab Combo Qual Negative 11/15/24 23:08: Urine Color Yellow, Urine Appearance Clear, Urine pH 7.0, Ur Specific [place] 1.010, Urine Protein Negative, Urine Glucose (UA) Negative, Urine Ketones Negative, Urine Blood Negative, Urine Nitrate Negative, Urine Bilirubin Negative, Urine Urobilinogen 0.2, Ur Leukocyte Esterase Negative, Urine RBC 3-5, Urine WBC 5-10, Ur Squamous Epith Cells 10-20, Urine Bacteria 3+ 11/16/24 01:05: Troponin I < 0.01 11/16/24 04:25: WBC 10.0, RBC 4.26, Hgb 13.3, Hct 39.3, MCV 92.3, MCH 31.2, MCHC 33.8, RDW 13.2, Plt Count 281, MPV 10.4, Neut % (Auto) 43.2, Lymph % (Auto) 45.8, Pickett % (Auto) 7.3, Eos % (Auto) 2.5, Baso % (Auto) 0.9, Neut # (Auto) 4.3, Lymph # (Auto) 4.6 H, Pickett # (Auto) 0.7, Eos # (Auto) 0.3, Baso # (Auto) 0.1, Sodium 140, Potassium 4.3, Chloride 110 H, Carbon Dioxide 23, Anion Gap 11.3, BUN 14, Creatinine 0.70, Estimated Creat Clear 138, Estimated GFR 91, Est GFR ( Amer) 111, Glucose 98, Calcium 8.5, Total Bilirubin 0.6, AST 26, ALT 22, Alkaline Phosphatase 65, Troponin I < 0.01, Total Protein 6.5, Albumin 3.6 D, Globulin 2.9, Albumin/Globulin Ratio 1.2 I & O for Last 24 hours: Intake & Output 11/13/24 11/14/24 11/15/24 11/16/24 23:59 23:59 23:59 23:59 Intake Total 970 / 970 Output Total 0 / 0 Balance 970 / 970 Weight 77.111 kg 84.64 kg Constitutional Constitutional: no acute distress *Routine HEENT Exam Head: Present normocephalic Eye: Present EOMI and PERRL ENT: Present mucous membranes moist *Routine Neck Exam Neck: Present supple; Absent lymphadenopathy *Routine Respiratory Exam Respiratory: Present CTA bilaterally *Routine Cardiovascular Exam Cardiovascular: Present RRR *Routine Abdominal Exam Abdominal: Present soft, normoactive bowel sounds and tenderness Comments: Dressings intact and dry. *Routine Extremities Exam Extremities: Absent cyanosis, clubbing or edema *Routine Skin Exam Skin: Present warm; Absent rash *Routine Neurological Exam Neurological: Present alert and oriented X3 Results Data Completed and Pending Labs on day of discharge: Labs from last 24 hours 11/16/24 11/16/24 11/15/24 04:25 01:05 23:08 WBC 10.0 RBC 4.26 Hgb 13.3 Hct 39.3 MCV 92.3 MCH 31.2 MCHC 33.8 RDW 13.2 Plt Count 281 MPV 10.4 Neut % (Auto) 43.2 Lymph % (Auto) 45.8 Pickett % (Auto) 7.3 Eos % (Auto) 2.5 Baso % (Auto) 0.9 Neut # (Auto) 4.3 Lymph # (Auto) 4.6 H Pickett # (Auto) 0.7 Eos # (Auto) 0.3 Baso # (Auto) 0.1 PT INR APTT Sodium 140 Potassium 4.3 Chloride 110 H Carbon Dioxide 23 Anion Gap 11.3 BUN 14 Creatinine 0.70 Estimated Creat Clear 138 Estimated GFR 91 Est GFR ( Amer) 111 Glucose 98 Calcium 8.5 Total Bilirubin 0.6 AST 26 ALT 22 Alkaline Phosphatase 65 Troponin I < 0.01 < 0.01 Total Protein 6.5 Albumin 3.6 D Globulin 2.9 Albumin/Globulin Ratio 1.2 Lipase HCG, Quant Urine Color Yellow Urine Appearance Clear Urine pH 7.0 Ur Specific [place] 1.010 Urine Protein Negative Urine Glucose (UA) Negative Urine Ketones Negative Urine Blood Negative Urine Nitrate Negative Urine Bilirubin Negative Urine Urobilinogen 0.2 Ur Leukocyte Esterase Negative Urine RBC 3-5 Urine WBC 5-10 Ur Squamous Epith Cells 10-20 Urine Bacteria 3+ HCV Ab LANA w/Rflx PCR Qn HIV Ag/Ab Combo Qual 11/15/24 11/15/24 21:28 21:25 WBC 11.1 H RBC 4.45 Hgb 14.0 Hct 40.3 MCV 90.6 MCH 31.5 H MCHC 34.7 RDW 12.8 Plt Count 305 MPV 10.5 H Neut % (Auto) 50.5 Lymph % (Auto) 37.7 Pickett % (Auto) 8.9 Eos % (Auto) 2.0 Baso % (Auto) 0.7 Neut # (Auto) 5.6 Lymph # (Auto) 4.2 Pickett # (Auto) 1.0 Eos # (Auto) 0.2 Baso # (Auto) 0.1 PT 9.6 L INR 0.84 L APTT 28.4 Sodium 139 Potassium 3.9 Chloride 106 Carbon Dioxide 23 Anion Gap 13.9 BUN 13 Creatinine 0.60 Estimated Creat Clear 147 Estimated GFR 109 Est GFR ( Amer) 132 Glucose 88 Calcium 9.1 Total Bilirubin 0.5 AST 27 ALT 26 Alkaline Phosphatase 69 Troponin I < 0.01 Total Protein 7.3 Albumin 4.2 Globulin 3.1 Albumin/Globulin Ratio 1.4 Lipase 49 HCG, Quant < 2 Urine Color Urine Appearance Urine pH Ur Specific [place] Urine Protein Urine Glucose (UA) Urine Ketones Urine Blood Urine Nitrate Urine Bilirubin Urine Urobilinogen Ur Leukocyte Esterase Urine RBC Urine WBC Ur Squamous Epith Cells Urine Bacteria HCV Ab LANA w/Rflx PCR Qn Negative HIV Ag/Ab Combo Qual Negative DS: Diagnosis Discharge Diagnosis (1) Acute cholecystitis: Status: Acute Code(s): K81.0 - Acute cholecystitis Meds Home Medications and Allergies Home Medications ?Medication ?Instructions ?Recorded ?Confirmed ?Type melatonin 10 mg tablet 10 mg PO HSP PRN Sleep 11/15/24 11/16/24 History hydrocodone 5 mg-acetaminophen 325 1 tab PO Q4H PRN Pain #17 tabs 11/16/24 Rx mg tablet New Prescriptions to Start Prescriptions: hydrocodone-acetaminophen Myke Lozoya Allergies Allergy/AdvReac Type Severity Reaction Status Date / Time No Known Allergies Allergy Verified 05/31/24 14:12 Discharge Plan Disposition Patient Disposition: Home, Self-Care Condition: Fair Follow up Plan Follow up with: Myke Lozoya MD [Staff Physician] - 2 weeks (Please call office for 2 week follow up appointment) Prescriptions/Medication Reconciliation: New hydrocodone-acetaminophen 5-325 mg Tablet 1 tab PO Q4H PRN (Reason: Pain) Qty: 17 0RF Continued melatonin 10 mg Tablet 10 mg PO HSP PRN (Reason: Sleep) Problem Reconciliation Problems Reviewed?: Yes Patient Discharge Instructions ACTIVITY: No heavy lifting DIET: advance to your usual diet Additional Instructions: Per our surgeon, you do not need additional antibiotics. Patient Instructions: Surgical Site Infection, Cholecystectomy -- Laparoscopic Surgery, DI for Cholecystitis Print Language: Mongolian Providers Primary Care Provider: Christiano Acosta Admit Provider: Roman Stein Attending Provider: Roman Stein
--- NOTE | 2024-11-17 08:01 | EXP.ANES.II ---
[facility] Anesthesia Record Part II Anesthesia Record Part II Discharge Time: 13:50 Destination: Medical Surgical Department PACU nurse assessment reviewed?: Yes Patient Condition:: Good Anesthesia Complications:: None Swallowing reflex intact?: Yes Airway Patency: Patent Cyanosis?: No Blood Pressure: 123/76 SaO2: 96 Respiratory Rate: 16 Pulse Rate: 64 Temperature: 97.7 F Mental Status: Alert & Oriented Pain level:: 0 Nausea and/or vomitting:: None Intake, IV Amount: 0 Hydration: Adequate
[2024-11-17 08:02] VITALS: BP 123/76; PULSE 64; RESP 16; TEMP 36.5; O2SAT 96
--- NOTE | 2024-11-17 10:24 | SW/DCPLANNER ---
Spoke with patient on the phone. Patient stated that she is doing alright. Patient stated that she has not called the surgeon to schedule a follow up in 2 weeks but plans on doing that today. Patient stated that she was able to get her new medicine [facility]. Patient stated that she has no concerns or questions at this time. Audra Wright
== END 2024-11-16 17:24 | disposition home or self-care (01) ==
LOC: ER 23:03 → 2ND 23:20
PROVIDERS: Nurse Practitioner Family; Surgery; Admitting Provider Student in an Organized Health Care Education/Training Program; Emergency Provider Emergency Medicine; PCP Internal Medicine Adolescent Medicine; Visit Provider Student in an Organized Health Care Education/Training Program
PROC: 0FT44ZZ Resection of Gallbladder, Percutaneous Endoscopic Approach (ICD-10-PCS; CPT 47562; principal; 2024-11-16 12:00)
DX: K80.00 Calculus of gallbladder with acute cholecystitis without obstruction (principal); F17.210 Nicotine dependence, cigarettes, uncomplicated
CPT/HCPCS: 47562; 36415; 76705; 80053; 81001; 83690; 84484; 84702; 85025; 85610; 85730; 86803; 87086; 87389; 93005; 96374; 99285; J3490; G0378; J1100; J1171; J1650; J1885; J2250; J2270; J2405; J2543; J3010; J7030

== ENCOUNTER 2025-01-31 10:02 | Emergency (ER) | payer OTHER, SELFPAY ==
--- OUTSIDE RECORDS SUMMARY | 2024-03-03 10:30 | XMS_ITS ---
Author Organization [facility] Address [address] [place], [place] [address] Care Team Providers Care Military Technology Specialist Name Role Phone Christiano Acosta Primary Care Provider Meghan Kelley Unavailable [phone] Meghan Frederick Unavailable [phone] REASON FOR VISIT F/U Encounters Encounter Location Date Provider Diagnosis [facility] [address] [place], [place] [address] 03/03/2024 Meghan Frederick Plan Of Treatment No Information Progress Notes * Rosalee SCHULZDOB:1980 (44 yo F)Acc No.[id number]:03/03/2024 Progress Notes Patient: Rosalee BRISENO Provider: TRAY Swan :1980 A ge:43 Y S ex:Female Date:03/03/2024 Address:[address] [id number] Pcp:Christiano Acosta Subjective: * Chief Complaints: * 1 . F/U. * Medical History: Objective: * Vitals: Assessment: Plan: * Treatment: * * Electronic signature of Carlee Frederick PA-C on 01/31/2025 at 10:09 AM EDT Sign off status: Pending * Provider: TRAY Swan Date: 0 03/03/2024 Generated for Zuleika miguel/Man/Tremaine on: 0 01/31/2025 10:09 AM BRICET
--- OUTSIDE RECORDS SUMMARY | 2024-11-11 17:30 | XMS_ITS ---
Author Organization [facility] Address [address] [facility] [address] [place] [address] Care Team Providers Care Electrician Wiring Name Role Phone Christiano Acosta Primary Care Provider [phone] Meghan Kelley Unavailable [phone] Migration, Provider Unavailable Unavailable REASON FOR VISIT Multum To Medispan Conversion Encounter Medications Medication SIG (Take, Route, Frequency, Duration) Notes Start Date End Date Status Mupirocin 2 % 1 alice applied topically 3 times a day Active Encounters Encounter Location Date Provider Diagnosis [facility] [address] [facility] [address] [place] [address] 11/11/2024 Provider Migration Plan Of Treatment No Information Progress Notes * Rosalee SCHULZDOB:1980 (44 yo F)Acc No.[id number]:11/11/2024 Patient: Rosalee BRISENO Provider: Rakel selby Migration :1980 A ge:43 Y S ex:Female Date:11/11/2024 Address:[address] [place] [address] [address] [id number] Pcp:Christiano Acosta Subjective: * Chief Complaints: * 1 . Multum To Medispan Conversion Encounter. * Medical History: * Medications: T aking Mupirocin 2 % Ointment 1 alice applied topically 3 times a day Objective: * Vitals: Assessment: Plan: * Treatment: * * Electronic signature of Prov tysonr Migration on 01/31/2025 at 10:09 AM EDT Sign off status: Pending * Provider: Rakel selby Migration Date: 0 11/11/2024 Generated for Zuleika miguel/Man/Tremaine on: 0 01/31/2025 10:09 AM EDT
--- OUTSIDE RECORDS SUMMARY | 2025-01-31 10:10 | XMS_ITS | Patient Health Record ---
Author Organization [facility] Address [address] [place] [address] Care Team Providers Care Commissary Representative Name Role Phone KarlaChristiano Primary Care Provider [phone] Meghan Kelley Unavailable [phone] Meghan Frederick Unavailable [phone] Migration, Provider Unavailable Unavailable Allergies No Known Allergies Results Component Value Reference Range Notes COMPREHENSIVE METABOLIC PANE L (26183) Reviewed date:02/14/2024 09:46:29 AM Interpretation: Performing Lab:[facility] HospitalQkjtJK[address] Augustus Linad Notes/Report: NON-FASTING; NON-FASTING; NON-FASTING; NON-FASTING; NON-FAST GLUCOSE 98 65-99 mg/dL Fasting reference interval UREA NITROGEN (BUN) 16 7-25 mg/dL CREATININE 0.73 0.50-0.99 mg/dL EGFR 105 > OR = 60 mL/min/1.73m2 BUN/CREATININE RATIO SEE NOTE: 6-22 (calc) Not Reported: BUN and Creatinine are within reference range. SODIUM 142 135-146 mmol/L POTASSIUM 4.2 3.5-5.3 mmol/L CHLORIDE 108 98-110 mmol/L CARBON DIOXIDE 25 20-32 mmol/L CALCIUM 9.4 8.6-10.2 mg/dL PROTEIN, TOTAL 6.8 6.1-8.1 g/dL ALBUMIN 4.4 3.6-5.1 g/dL GLOBULIN 2.4 1.9-3.7 g/dL (calc) ALBUMIN/GLOBULIN RATIO 1.8 1.0-2.5 (calc) BILIRUBIN, TOTAL 0.4 0.2-1.2 mg/dL ALKALINE PHOSPHATASE 80 31-125 U/L AST 18 10-30 U/L ALT 20 6-29 U/L MAGNESIUM (622) Reviewed date:02/14/2024 09:46:29 AM Interpretation: Performing Lab:[facility], [employer] SolutionsEpchPA[address] Augustus Linda Notes/Report: NON-FASTING; NON-FASTING; NON-FASTING; NON-FASTING; NON-FAST MAGNESIUM 2.2 1.5-2.5 mg/dL CBC (INCLUDES DIFF/PLT) (639 9) Reviewed date:02/14/2024 09:46:29 AM Interpretation: Performing Lab:[facility] [employer] [address], [employer] SolutionsCpbhER[address] Augustus Linda Notes/Report: NON-FASTING; NON-FASTING; NON-FASTING; NON-FASTING; NON-FAST WHITE BLOOD CELL COUNT 10.5 3.8-10.8 Thousand/ uL RED BLOOD CELL COUNT 4.70 3.80-5.10 Million/uL HEMOGLOBIN 14.6 11.7-15.5 g/dL HEMATOCRIT 44.9 35.0-45.0 % MCV 95.5 80.0-100.0 fL MCH 31.1 27.0-33.0 pg MCHC 32.5 32.0-36.0 g/dL RDW 12.6 11.0-15.0 % PLATELET COUNT 329 140-400 Thousand/uL MPV 10.1 7.5-12.5 fL ABSOLUTE NEUTROPHILS 5702 5327-3922 cells/uL ABSOLUTE LYMPHOCYTES 3906 850-3900 cells/uL ABSOLUTE MONOCYTES 567 200-950 cells/uL ABSOLUTE EOSINOPHILS 231 15-500 cells/uL ABSOLUTE BASOPHILS 95 0-200 cells/uL NEUTROPHILS 54.3 LYMPHOCYTES 37.2 MONOCYTES 5.4 EOSINOPHILS 2.2 BASOPHILS 0.9 VITAMIN B12 (927) Reviewed date:02/14/2024 09:46:29 AM Interpretation: Performing Lab:[facility] [address] [employer] [address] [employer], [employer] [id number] Augustus Linda Notes/Report: NON-FASTING; NON-FASTING; NON-FASTING; NON-FASTING; NON-FAST VITAMIN B12 409 295-3878 pg/mL TSH W/REFLEX TO FT4 (56627) Reviewed date:02/14/2024 09:46:29 AM Interpretation: Performing Lab:[facility] [employer], [facility] HospitalFiadCH[address] Augustus Linda Notes/Report: NON-FASTING; NON-FASTING; NON-FASTING; NON-FASTING; NON-FAST TSH W/REFLEX TO FT4 0.88 Reference Range > or = 20 Years 0.40-4.50 Ranges First trimester 0.26-2.66 Second trimester 0.55-2.73 Third trimester 0.43-2.91 VITAMIN D,25-OH,TOTAL,IA (17 306) Reviewed date:02/14/2024 09:46:29 AM Interpretation: Performing Lab:[facility], [facility] [id number] Augustus Linda Notes/Report: NON-FASTING; NON-FASTING; NON-FASTING; NON-FASTING; NON-FAST VITAMIN D,25-OH,TOTAL,IA 30 30-100 ng/mL Vitamin D Status 25-OH Vitamin D: Deficiency: <20 ng/mL Insufficiency: 20 - 29 ng/mL Optimal: > or = 30 ng/mL For 25-OH Vitamin D testing on patients on D2-supplementation and patients for whom quantitation of D2 and D3 fractions is required, the [facility]() 25-OH VIT D, (D2,D3), LC/MS/MS is recommended: order code [id number] (patients >2yrs). See Note 1 Note 1 For additional information, please refer to http://education.[employer] [place]/faq/EHN656 (This link is being provided for informational/ educational purposes only.) Reason For Referral No Information Medications Medication SIG (Take, Route, Frequency, Duration) Notes Start Date End Date Status Mupirocin 2 % 1 alice applied topically 3 times a day Active Immunizations Vaccine Route Administration Date Status Comme nts Adacel (Tdap) IM Intramuscular 05/14/2016 Administered Influenza-Fluzone 3+years (NON-MEDICARE) IM Intramuscular 05/14/2016 Administered Problems Problem Type SNOMED Code ICD Code Onset Dates Problem Status W/U Status Risk Notes Problem Anxiety state (064120361) ANXIETY - UNSPECIFIED (300.00) Active confirmed Problem Tobacco use (813440054) TOBACCO USE DISORDER (305.1) Active confirmed Problem Psychophysiologic insomnia (718123641) Psychophysiologic insomnia (F51.04) Active confirmed Problem Tobacco use (262136073) Tobacco use (Z72.0) Active confirmed Problem Sialadenitis (04227092) Sialadenitis (K11.20) Active confirmed Problem Migraine without aura, not refractory (582899588) Migraine without aura and without status migrainosus, not intractable (G43.009) Active confirmed Problem Generalized anxiety disorder (93274703) JORGE L (generalized anxiety disorder) (F41.1) Active confirmed Problem Amenorrhea (82827493) Amenorrhea (N91.2) Active confirmed Problem Tension-type headache (157298538) Acute non intractable tension-type headache (G44.209) Active confirmed Problem Kidney infection (922131771) Kidney infection (N15.9) Active confirmed Vital Signs Heart Rate 80 /min 06/01/2024 Temperature 98.2 degrees Fahrenheit 06/01/2024 Blood pressure diastolic 74 mm Hg 06/01/2024 Height 5 ft 5 in in 06/01/2024 Blood pressure systolic 110 mm Hg 06/01/2024 Weight 184 lbs 06/01/2024 BMI 30.62 kg/m2 06/01/2024 Encounters Encounter Location Date Provider Diagnosis [facility] [address] [facility] [address] [place] [address] 11/11/2024 Provider Migration [facility] [address] [address] 02/11/2024 Meghan Frederick Acute non intractable tension-type headache G44.209 [facility] [address] [facility] [address] [place] [address] 06/01/2024 Meghan Kelley Boil L02.92 and Resistance to methicillin A49.02 [facility] [address] [facility] [address] [place], [place] [address] 05/31/2024 Christiano Acosta Assessments Encounter Date Diagnosis (ICD Code) Assessment Notes Treatment Notes Treatment Clinical Notes Section Notes 02/11/2024 Acute non intractable tension-type headache (ICD-10 - G44.209) Discussed that headaches are common. Majority of the time there is no underlying cause. No imaging warranted at this time. Discussed using OTC analgesics sparingly on a PRN basis. Discussed keeping a headache diary to keep track of trends/patterns, frequency, duration, relieving factors, triggers, etc. Recommended increasing amount of sleep, increasing water intake, and limiting screen time. Red flags and return precautions discussed. Follow up in 1 month. If worsening symptoms, or no improvement with lifestyle changes, can consider neurology referral. Follow-up in 4 weeks or sooner if needed. 06/01/2024 Boil (ICD-10 - L02.92) we reviewed her culture and discussed that while it was methicillin resistance it was actually staph capitis, not staph aureus, as well as Corneybacterium which is commonly found on the skin. No additional oral antibiotics recommended. 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) Plan Of Treatment Pending Test Test Name Order Date Physical Therapy 10/16/2013 Physical Therapy 10/13/2013 H-CBC with AUTO DIFF 10/19/2014 H-VITAMIN B12 10/19/2014 H-CMP 10/19/2014 H-TSH 10/19/2014 H-VIT D, 25-HYDROXY 10/19/2014 Insurance Providers Payer Name Payer Address Payer Phone Subscriber Number Group Number Insured Name Patient Relationship to Insured Coverage Start Date Coverage End Date [facility] [address] [place] [address] [id number] Rosalee Dodge Self - patient is the insured Medical (General) History Medical History History ICD Code heart murmur mitral valve prolapse early menopause Anxiety Surgical History Surgery Date(Month/Year) 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
[2025-01-31 10:16] VITALS: BP 136/89; PULSE 76; RESP 18; TEMP 36.7; O2SAT 97; BMI 28.3
--- NOTE | 2025-01-31 10:16 | XR_ITS ---
FINAL REPORT CLINICAL HISTORY: pain on internal side FINDINGS: Three views show no evidence of acute displaced fracture or dislocation of the visualized bony architecture. There are scattered degenerative changes, most pronounced in the medial midfoot. There is an old avulsion fracture of the dorsal navicular bone. Mild calcaneal spurring is identified. IMPRESSION: Chronic changes, most pronounced at the medial midfoot. Reviewed, Interpreted and Dictated by Ty Adams MD Transcribed by Melanie Singleton Authenticated and [facility]
--- NOTE | 2025-01-31 10:16 | XR_ITS ---
FINAL REPORT CLINICAL HISTORY: pain on internal side; no known injury FINDINGS: Three views show no evidence of acute displaced fracture or dislocation of the visualized bony architecture. The joint spaces appear normal. IMPRESSION: Unremarkable exam. Reviewed, Interpreted and Dictated by Ty Adams MD Transcribed by Melanie Singleton Authenticated and [facility]
--- NOTE | 2025-01-31 10:30 | HMH.EDGENADL ---
Discharge Plan Disposition Patient Disposition: Home, Self-Care Prescriptions Prescriptions: No Action melatonin 10 mg Tablet 10 mg PO HSP PRN (Reason: Sleep) Referrals Follow up/Referrals: Christiano Acosta MD [Primary Care Provider, Internal Medicine] - See instructions Polina Brunner DPM [Staff Physician, Podiatry] - See instructions Activity Restrictions/Add. Instructions Additional Instructions/Restrictions: Ice, elevate and use Stas wrap to compress. You will likely need physical therapy and further imaging. Please call Dr. Brunner's office or your PCP. Clinical Impressions Clinical Impression: Left foot pain Instructions Patient Instructions: DI for Acute Pain -- Adult Print Language Print Language: Chinese Discharge ED Provider: Karlos Villanueva General Adult HPI <Leslie Garcia (ED), [employer] OPERATOR - Last Filed: 01/31/25 12:22> General Chief complaint: PAIN Stated complaint: pain, swelling, bruising in L foot, no accident Time Seen by Provider: 01/31/25 10:05 Mode of Arrival: Family Vehicle Source of Information: Patient and Medical Record Description of Symptoms (Recalled from ER Triage Doc. by RN): Pt c/o left foot pain near the arch/lateral area. Denies any known injury, fall, or trauma to her foot. States the pain began on Wednesday night (01/28) and has progressively worsened since then and kept me up all night for 2 nights . States pain is now radiating up the back of her leg. Pulses WNL. No redness or redness to LLE. History of Present Illness HPI narrative: 44-year-old female presents to the ED today with complaint of left lateral foot and ankle pain that started 2 days ago. She states that it was bruised but is no longer bruised. It is swollen, painful and moving up the back of her calf. She has no redness. She has been applying ice, heat and elevating it. She has had no injury or trauma to the area. She says this pain kept her up for the past 2 nights. She has no history of clots, no recent surgeries no shortness of breath no chest pain. No other associated signs and symptoms. Related Data Home Medications ?Medication ?Instructions ?Recorded ?Confirmed melatonin 10 mg tablet 10 mg PO HSP PRN Sleep 11/15/24 11/30/24 Allergies Allergy/AdvReac Type Severity Reaction Status Date / Time No Known Allergies Allergy Verified 11/30/24 10:15 PFS <Leslie Garcia (ED), [employer] OPERATOR - Last Filed: 01/31/25 12:22> [facility] Disclaimer: The information contained in this section may have been updated after the patient was seen, as this information can be updated by other users. Medical History (Updated 01/31/25 @ 12:10 by Leslie Garcia (ED), [employer] OPERATOR) Open fracture of phalanx of right middle finger Acute viral syndrome Headache Strep throat Nontraumatic chest pain Contusion of right foot Contusion of left arm Strain of right hip Cervical strain Fall Laceration of thumb Pain in right axilla Sprain and strain of wrist Atypical chest pain UTI (urinary tract infection) Pyelonephritis Contusion of left lower leg, initial encounter Abrasion, left lower leg, initial encounter Laceration Viral upper respiratory illness Depression Anxiety Surgical History (Updated 11/30/24 @ 10:16 by KEITH Serrato) History of laparoscopic cholecystectomy History of hysterectomy Family History Other No significant family history Social History Smoking Status: Current every day smoker tobacco type: cigarettes packs per day: 1 alcohol intake: never current occupational status: employed Travel in the last 8 weeks?: None household members: spouse housing: house current occupational exposures/hazards: No caffeine: Yes Have you lived/traveled outside [place] in past 30 days?: No Contact w/someone who lives/traveled outside [place] past 30 days?: No Exposure to someone with infectious disease in past 14 days?: No Do you have a fever (greater than 100.4 F or 38 C)?: No Have you tested positive for COVID-19?: No Exposed to someone with COVID-19 in past 14 days?: No Do you have a sore throat?: No Do you have a cough?: No Do you have any weakness?: No Do you have any diarrhea?: No Are you experiencing any unusual bleeding?: No Do you have any muscle aches/pain?: Yes Do you have any abdominal pain?: No Are you experiencing loss of taste or smell?: No Other Medical History Have you received the Flu Vaccine for this season: No Have you received the Pneumonia Vaccine: No <Leslieprincess Garcia (ED), [employer] OPERATOR - Last Filed: 01/31/25 12:22> ROS Obtained: Yes Systems reviewed as appropriate & no additional complaints except as documented Constitutional Constitutional: Reports as per HPI Physical Exam <Leslie Garcia (ED), [employer]PERATOR - Last Filed: 01/31/25 12:22> General General appearance: alert Head Head exam: normocephalic Eye Eye exam: Present normal appearance, PERRL and EOMI ENT ENT exam: Present normal oropharynx and mucous membranes moist Neck Neck exam: Present full ROM and trachea midline Respiratory Respiratory exam: Present normal lung sounds bilaterally Cardiovascular Cardiovascular exam: Present regular rate, normal rhythm, normal heart sounds, +S1 and +S2 Abdominal Exam Abdominal exam: Present soft and normal bowel sounds Extremities Exam Extremities exam: Present full ROM, tenderness (Lateral portion of foot and ankle) and normal capillary refill Back Exam Back exam: Present normal inspection Neurological Exam Neurological exam: Present alert, oriented X3 and normal gait Skin Skin exam: Present warm, dry and intact Medical Decision Making <Leslie Kilcyril (ED), [employer] OPERATOR - Last Filed: 01/31/25 12:22> Medical Records Screening: Per USPSTF and CDC recommendations, given the prevalence of disease in our region, it is our hospital?s policy to screen for HIV and viral Hepatitis for all patients aged 18 and over and those with ongoing risk factors. Romie Inquiry Pt receiving controlled substance: No Romie was queried for this patient: No Vital Signs: 01/31/25 10:16 01/31/25 12:13 Temperature 98.1 F 98.2 F Temperature Source Oral Oral Pulse Rate 64 Pulse Rate [Right] 76 Respiratory Rate 18 17 Blood Pressure 123/89 Blood Pressure [Right Arm] 136/89 Blood Pressure Mean [Right Arm] 104 Blood Pressure Source [Right Arm] Automatic Cuff Blood Pressure Position Supine 02 Sat by Pulse Oximetry 97 Oxygen Delivery Method Room Air Room Air Lab Data Lab Results 01/31/25 10:55: WBC 8.9, RBC 4.69, Hgb 14.7, Hct 43.0, MCV 91.7, MCH 31.3 H, MCHC 34.2, RDW 13.1, Plt Count 296, MPV 10.1, Neut % (Auto) 59.2, Lymph % (Auto) 31.3, Harvey % (Auto) 7.1, Eos % (Auto) 1.6, Baso % (Auto) 0.7, Neut # (Auto) 5.2, Lymph # (Auto) 2.8, Harvey # (Auto) 0.6, Eos # (Auto) 0.1, Baso # (Auto) 0.1, D-Dimer 0.30, Sodium 139, Potassium 4.3, Chloride 104, Carbon Dioxide 27, Anion Gap 12.3, BUN 12, Creatinine 0.70, Estimated Creat Clear 125, Estimated GFR 91, Est GFR ( Amer) 110, Glucose 101 H, Calcium 10.0, Magnesium 2.2, Total Bilirubin 0.6, AST 31, ALT 30, Alkaline Phosphatase 79, Total Protein 7.1, Albumin 4.3, Globulin 2.8, Albumin/Globulin Ratio 1.5 01/31/25 10:55 01/31/25 10:55 Orders (Tests/Meds): ORDERS Category Date Time Status Ankle XR - Left minimum 3 Views [XR ankle LT min 3V] Exams 01/31/25 10:16 Completed Stat Foot XR left minimum 3 views [XR foot LT min 3V] Stat Exams 01/31/25 10:16 Completed CBC [Complete Blood Count Auto Diff] Stat Lab 01/31/25 10:55 Completed Comprehensive Metabolic Panel Stat Lab 01/31/25 10:55 Completed D-Dimer Stat Lab 01/31/25 10:55 Completed Magnesium Stat Lab 01/31/25 10:55 Completed Medical Decision Narrative: patient is a 44-year-old female presenting to the emergency department for evaluation of left foot and ankle pain for 2 days. Patient is hemodynamically stable and nontoxic-appearing upon arrival, afebrile. Differential diagnosis includes left foot sprain, strain, fracture, among others. Workup will be conducted with hematologic labs, specific imaging. Initial workup reviewed by me x-ray of foot and ankle. Imaging informally interpreted by me and remarkable for nothing acute. Formal imaging read remarkable for please see formal report. Upon repeat evaluation patient's pain is improved. Discussed with patient that she likely needs to follow-up with podiatry for her continued foot pain as x-rays did not show anything and the dimer was negative so she does not have a clot. Patient is safe for discharge home. <Ross A Kay, MD - Last Filed: 01/31/25 12:32> Vital Signs: 01/31/25 10:16 01/31/25 12:13 Temperature 98.1 F 98.2 F Temperature Source Oral Oral Pulse Rate 64 Pulse Rate [Right] 76 Respiratory Rate 18 17 Blood Pressure 123/89 Blood Pressure [Right Arm] 136/89 Blood Pressure Mean [Right Arm] 104 Blood Pressure Source [Right Arm] Automatic Cuff Blood Pressure Position Supine 02 Sat by Pulse Oximetry 97 Oxygen Delivery Method Room Air Room Air Lab Data Lab Results 01/31/25 10:55: WBC 8.9, RBC 4.69, Hgb 14.7, Hct 43.0, MCV 91.7, MCH 31.3 H, MCHC 34.2, RDW 13.1, Plt Count 296, MPV 10.1, Neut % (Auto) 59.2, Lymph % (Auto) 31.3, Harvey % (Auto) 7.1, Eos % (Auto) 1.6, Baso % (Auto) 0.7, Neut # (Auto) 5.2, Lymph # (Auto) 2.8, Harvey # (Auto) 0.6, Eos # (Auto) 0.1, Baso # (Auto) 0.1, D-Dimer 0.30, Sodium 139, Potassium 4.3, Chloride 104, Carbon Dioxide 27, Anion Gap 12.3, BUN 12, Creatinine 0.70, Estimated Creat Clear 125, Estimated GFR 91, Est GFR ( Amer) 110, Glucose 101 H, Calcium 10.0, Magnesium 2.2, Total Bilirubin 0.6, AST 31, ALT 30, Alkaline Phosphatase 79, Total Protein 7.1, Albumin 4.3, Globulin 2.8, Albumin/Globulin Ratio 1.5 Orders (Tests/Meds): ORDERS Category Date Time Status Ankle XR - Left minimum 3 Views [XR ankle LT min 3V] Exams 01/31/25 10:16 Completed Stat Foot XR left minimum 3 views [XR foot LT min 3V] Stat Exams 01/31/25 10:16 Completed CBC [Complete Blood Count Auto Diff] Stat Lab 01/31/25 10:55 Completed Comprehensive Metabolic Panel Stat Lab 01/31/25 10:55 Completed D-Dimer Stat Lab 01/31/25 10:55 Completed Magnesium Stat Lab 01/31/25 10:55 Completed Medical Decision Narrative: patient is a 44-year-old female presenting to the emergency department for evaluation of left foot and ankle pain for 2 days. Patient is hemodynamically stable and nontoxic-appearing upon arrival, afebrile. Differential diagnosis includes left foot sprain, strain, fracture, among others. Workup will be conducted with hematologic labs, specific imaging. Initial workup reviewed by me x-ray of foot and ankle. Imaging informally interpreted by me and remarkable for nothing acute. Formal imaging read remarkable for please see formal report. Upon repeat evaluation patient's pain is improved. Discussed with patient that she likely needs to follow-up with podiatry for her continued foot pain as x-rays did not show anything and the dimer was negative so she does not have a clot. Patient is safe for discharge home. I was consulted by the LINDEN, and we discussed the complexity of the problems being addressed. I approved the treatment and management plan for this patient's care in the Emergency Department, thus performing a substantive portion of the medical decision making. Karlos Villanueva MD Critical Care <Leslie Garcia (ED), [employer] OPERATOR - Last Filed: 01/31/25 12:22> Critical Care Time Critical Care Time: No
[2025-01-31 11:07] LABS: Basophils # 0.1 K/mm3 (0-0.2); Basophils % 0.7 % (0.1-2.0); Eosinophils # 0.1 Kmm3 (0.0-0.4); Eosinophils % 1.6 % (0.1-12.0); Hemoglobin 14.7 g/dL (12.2-16.2); Immature Granulocytes # 0.01 10^3uL; Immature Granulocytes % 0.1 %; Lymphocytes # 2.8 K/mm3 (0.7-4.5); Lymphocytes % 31.3 % (10-50); Mean Corpuscular HGB Conc 34.2 g/dL (31.8-35.4); Mean Corpuscular Hemoglobin 31.3 pg (27.0-31.2); Mean Corpuscular Volume 91.7 fl (81-99); Mean Platelet Volume 10.1 fl (7.4-10.4); Monocytes # 0.6 K/mm3 (0.1-1.0); Monocytes % 7.1 % (1.7-9.3); Neutrophils # 5.2 K/mm3 (1.8-7.8); Neutrophils % 59.2 % (37.0-80.0); Nucleated Red Blood Cells # 0 10^3/uL; Nucleated Red Blood Cells % 0 %; Platelet Count 296 K/mm3 (142-424); Red Blood Count 4.69 M/mm3 (4.20-5.40); Red Cell Distribution Width 13.1 % (11.5-17.5); Red Cell Distribution Width-SD 43.9 fL; White Blood Count 8.9 K/mm3 (4.8-10.8)
[2025-01-31 11:15] LABS: Alanine Aminotransferase 30 U/L (12-78); Albumin Level 4.3 g/dl (3.5-5.0); Albumin/Globulin Ratio 1.5 (1.1-1.8); Alkaline Phosphatase 79 U/L (38-126); Anion Gap 12.3 mEq/L (5-15); Aspartate Amino Transferase 31 U/L (14-36); Bilirubin,Total 0.6 mg/dl (0.2-1.3); Blood Urea Nitrogen 12 mg/dl (7-17); Carbon Dioxide 27 mmol/L (22.0-30.0); Chloride 104 mmol/L (98-107); Creatinine Clearance Estimated 125 mL/min (50-200); Estimated Glomerular Filt Rate 91 ml/min (>60); GFR (African American) 110 ML/MIN (>60); Globulin 2.8 g/dL (1.3-3.2); Glucose 101 mg/dl (74-100); Magnesium 2.2 mg/dl (1.6-2.3); Potassium 4.3 mmoL/L (3.5-5.1); Sodium 139 mmol/L (136-145); Total Protein,Serum 7.1 g/dl (6.3-8.2)
[2025-01-31 12:13] VITALS: BP 123/89; PULSE 64; RESP 17; TEMP 36.8; O2SAT 97
== END 2025-01-31 12:16 | disposition home or self-care (01) ==
PROVIDERS: Nurse Practitioner; Emergency Provider Emergency Medicine; PCP Internal Medicine Adolescent Medicine
DX: M79.672 Pain in left foot (principal); F17.210 Nicotine dependence, cigarettes, uncomplicated
CPT/HCPCS: 73610; 73630; 80053; 83735; 85025; 85378; 99283